=== PATIENT | male | born 1950 | race Caucasian/White ===

== ENCOUNTER 2021-07-17 11:18 | Outpatient (REF) | payer MEDICARE, SELFPAY ==
--- NOTE | ~2021-07-17 | XR_ITS ---
EXAMINATION: XR CHEST CLINICAL INFORMATION: BPH. COMPARISON: None TECHNIQUE: 2 views of the chest were obtained. FINDINGS: There is a probable nipple shadow overlying the left anterior fifth intercostal space. This may be confirmed with repeat view with nipple markers. The lungs otherwise clear and there is no airspace consolidation or groundglass opacity, pleural reaction, or effusion. The costophrenic sulci are clear. The heart is normal in size. The hilar and mediastinal contours are normal. Bony structures are unremarkable. XR/XR chest 2V IMPRESSION: 1. Probable nipple shadow overlying left anterior fifth intercostal space. This may be confirmed with repeat frontal view with nipple markers. 2. Lungs otherwise clear.
[2021-07-17 13:51] LABS: MANUAL DIFF FLAG NO
[2021-07-17 14:02] LABS: Basophils Absolute Auto 0.1 X10*3/uL (0.0-0.2); Basophils Percent Auto 0.9 % (0-2); Eosinophils Absolute Auto 0.2 X10*3/uL (0.0-0.4); Eosinophils Percent Auto 2.8 % (0-4); Hematocrit 49.9 % (42-52); Hemoglobin 16.8 g/dl (14.0-18.0); Imm Gran Abs Auto 0.01 X10*3/uL (0.00-0.03); Imm Gran Pct Auto 0.2 % (0.0-0.4); Lymphocytes Absolute Auto 1.7 X10*3/uL (1.2-4.9); Lymphocytes Percent Auto 29.7 % (20-40); Mean Corpuscular HGB Conc 33.7 g/dl (31.0-36.0); Mean Platelet Volume 9.8 fL (9.4-12.4); Monocytes Absolute Auto 0.5 X10*3/uL (0.1-1.2); Monocytes Percent Auto 9.2 % (2-11); Neutrophils Absolute Auto 3.2 X10*3/uL (2.0-8.3); Neutrophils Percent Auto 57.2 % (45-73); Platelet Count 225 X10*3/uL (160-400); Red Cell Distribution Width 12.2 % (11.0-16.0); White Blood Count 5.7 X10*3/uL (4.8-10.8)
[2021-07-17 14:03] LABS: Appearance Urine CLEAR; Color Urine YELLOW; Glucose Urine UA NEG (NEG); Leukocyte Esterase Urine NEG (NEG); Nitrite Urine NEG (NEG); Urine Blood NEG (NEG); Urine Ketones NEG (NEG); Urine Protein NEG (NEG-TRACE)
[2021-07-17 14:22] LABS: Alanine Aminotransferase 23 U/L (0-40); Albumin Level 4.2 g/dL (3.5-5.0); Alkaline Phosphatase 71 U/L (39-117); Anion Gap 13 (12-20); Aspartate Amino Transferase 24 U/L (5-37); Bilirubin Total 0.9 mg/dL (0.0-1.0); Blood Urea Nitrogen 18 mg/dL (9-16); Calcium 9.5 mg/dL (8.4-10.2); Carbon Dioxide 25 mmol/L (22-29); Chloride 108 mmol/L (96-108); Cholesterol 153 mg/dL; Estimated Glomerular Filt Rate > 60; Glucose Fasting 99 mg/dL (60-99); HDL Cholesterol 41 mg/dL; LDL Cholesterol Calculated 94 mg/dl; Potassium 4.9 mmol/L (3.3-5.1); Sodium 141 mmol/L (135-145); Total Protein 6.8 g/dL (6.5-8.0); Triglycerides 94 mg/dL
[2021-07-17 14:42] LABS: Prostate Specific Antigen Scr 3.61 ng/mL (<0.05-4.0)
== END 2021-07-17 11:19 | disposition home or self-care (01) ==
LOC: HO.10HDL 11:18
PROVIDERS: Visit Provider Internal Medicine
DX: R04.2 Hemoptysis (principal); K21.9 Gastro-esophageal reflux disease without esophagitis; N18.9 Chronic kidney disease, unspecified; N40.1 Benign prostatic hyperplasia with lower urinary tract symptoms; R35.1 Nocturia; Z12.5 Encounter for screening for malignant neoplasm of prostate
CPT/HCPCS: 36415; 71046; 80053; 80061; 81003; 84153; 85025

== ENCOUNTER 2023-05-17 14:31 | Outpatient (REF) | payer MEDICARE, SELFPAY ==
[2023-05-17 14:46] LABS: MANUAL DIFF FLAG NO
[2023-05-17 15:15] LABS: Basophils Percent Auto 0.6 % (0-2); Eosinophils Absolute Auto 0.2 X10*3/uL (0.0-0.4); Eosinophils Percent Auto 2.5 % (0-4); Hematocrit 50.1 % (42.0-52.0); Hemoglobin 16.7 g/dl (14.0-18.0); Imm Gran Abs Auto 0.04 X10*3/uL (0.00-0.03); Imm Gran Pct Auto 0.6 % (0.0-0.4); Lymphocytes Percent Auto 27.8 % (20-40); Mean Corpuscular HGB Conc 33.3 g/dl (31.0-36.0); Mean Corpuscular Hemoglobin 28.7 pg (27.0-33.0); Mean Corpuscular Volume 86.2 fL (80.0-98.0); Mean Platelet Volume 9.7 fL (9.4-12.4); Monocytes Absolute Auto 0.6 X10*3/uL (0.1-1.2); Monocytes Percent Auto 8.9 % (2-11); Neutrophils Absolute Auto 4.3 x10*3/uL (2.0-8.3); Neutrophils Percent Auto 59.6 % (45-73); Platelet Count 197 X10*3/uL (160-400); Red Blood Count 5.81 X10*6/uL (4.60-5.80); Red Cell Distribution Width 12.9 % (11.0-16.0); White Blood Count 7.2 X10*3/uL (4.8-10.8)
[2023-05-17 16:54] LABS: Alanine Aminotransferase 23 U/L (0-40); Albumin Level 4.3 g/dL (3.5-5.0); Alkaline Phosphatase 77 U/L (39-117); Anion Gap 15 (12-20); Aspartate Amino Transferase 30 U/L (5-37); Bilirubin Total 0.8 mg/dL (0.0-1.0); Blood Urea Nitrogen 19 mg/dL (9-16); Carbon Dioxide 24 mmol/L (22-29); Chloride 108 mmol/L (96-108); Cholesterol 167 mg/dL; Estimated Glomerular Filt Rate > 60; Glucose Fasting 87 mg/dL (60-99); HDL Cholesterol 46 mg/dL; LDL Cholesterol Calculated 99 mg/dl; Potassium 4.4 mmol/L (3.3-5.1); Sodium 143 mmol/L (135-145); Total Protein 7.1 g/dL (6.5-8.0); Triglycerides 111 mg/dL
[2023-05-17 17:08] LABS: Prostate Specific Antigen 4.24 ng/mL (<0.05-4.0)
== END 2023-05-17 14:32 | disposition home or self-care (01) ==
LOC: HO.LAB 14:31
PROVIDERS: PCP Internal Medicine; Visit Provider Internal Medicine
DX: K21.9 Gastro-esophageal reflux disease without esophagitis (principal); R35.1 Nocturia; Z86.73 Personal history of transient ischemic attack (TIA), and cerebral infarction without residual deficits; Z12.5 Encounter for screening for malignant neoplasm of prostate
CPT/HCPCS: 36415; 80053; 80061; 84153; 85025

== ENCOUNTER 2023-06-01 07:31 | Outpatient (REF) | payer MEDICARE, SELFPAY ==
--- NOTE | ~2023-06-01 | CT_ITS ---
EXAMINATION: CT head/brain wo IV con CLINICAL INFORMATION: Reason for Exam DISORDER OF FACIAL NERVE COMPARISON: None. TECHNIQUE: Contiguous axial imaging was performed from the skull base to vertex without intravenous contrast. Sagittal and coronal reformatted images were obtained. This CT examination was performed using dose optimization techniques as appropriate, variously including the following: * Automated exposure control * Adjustment of mA and/or kV according to patient size (this includes techniques or standardized protocols for targeted exams where dose is matched to indication/reason for exam; i.e. extremities or head) Use of iterative reconstruction technique DLP: 987 mGy-cm FINDINGS: Mild generalized parenchymal volume loss. Patchy periventricular and deep white matter hypoattenuation is nonspecific but likely reflects sequelae of moderate to advanced chronic microangiopathy. No territorial loss of weinberg-white differentiation. Limited assessment of the internal auditory canals and of the cranial nerve VII and VIII complexes on CT, which would be better diagnostically assessed on contrast-enhanced MRI IAC protocol. No largest cerebellopontine angle mass. Calcific atherosclerotic disease of the carotid siphons. No acute intracranial hemorrhage or extra-axial fluid collection. No mass lesion, significant mass effect, or herniation pattern. The orbits are grossly normal. Mild to moderate diffuse paranasal sinus mucosal disease with retention cyst/polyp in the left maxillary sinus alveolar recess. No mastoid effusion. Osseous structures are intact. CT/CT head/brain wo IV con IMPRESSION: No acute intracranial abnormality. Specifically, no CT evidence of acute intracranial hemorrhage, significant mass effect, hydrocephalus, or large territorial infarction. Mild generalized parenchymal volume loss and nonspecific supratentorial white matter disease, presumably moderate to advanced chronic microangiopathy. Limited assessment of the internal auditory canals and of the cranial nerve VII and VIII complexes on CT, which would be better diagnostically assessed on contrast-enhanced MRI IAC protocol. No largest cerebellopontine angle mass.
== END 2023-06-01 07:32 | disposition home or self-care (01) ==
LOC: HO.CT 07:31
PROVIDERS: Visit Provider Internal Medicine
DX: G51.9 Disorder of facial nerve, unspecified (principal)
CPT/HCPCS: 70450

== ENCOUNTER 2023-09-24 10:25 | Outpatient (REF) | payer MEDICARE, SELFPAY ==
[2023-09-24 14:19] LABS: Anion Gap 11 (12-20); Blood Urea Nitrogen 17 mg/dL (9-16); C Reactive Protein < 0.10 mg/dL (< or = 0.50); Calcium 9.6 mg/dL (8.4-10.2); Carbon Dioxide 26 mmol/L (22-29); Chloride 109 mmol/L (96-108); Estimated Glomerular Filt Rate > 60; Glucose Random 102 mg/dL (60-115); Magnesium 2.2 mg/dL (1.6-2.6); Potassium 4.2 mmol/L (3.3-5.1); Sodium 142 mmol/L (135-145)
[2023-09-24 15:12] LABS: Free T4 (Free Thyroxine) 0.79 ng/dL (0.71-1.85); Thyroid Stimulating Hormone 0.82 uIU/mL (0.32-4.0)
[2023-09-24 15:20] LABS: Vitamin B12 399 pg/mL (200-900)
== END 2023-09-24 10:26 | disposition home or self-care (01) ==
LOC: HO.10HDL 10:25
PROVIDERS: Visit Provider Internal Medicine
DX: R25.1 Tremor, unspecified (principal)
CPT/HCPCS: 36415; 80048; 82607; 83735; 84439; 84443; 86140

== ENCOUNTER 2023-11-04 13:15 | Outpatient (REF) | payer MEDICARE, SELFPAY ==
--- NOTE | ~2023-11-04 | US_ITS ---
EXAMINATION: US EXTRACRANIAL CAROTID DUPLEX, BILATERAL CLINICAL INFORMATION: Lightheadedness. COMPARISON: None available. TECHNIQUE: Real-time ultrasound and Doppler techniques (integrating B-mode 2-D vascular images, Doppler spectral analysis and color-flow Doppler imaging) were utilized to interrogate the extracranial carotid arteries, the vertebral arteries and proximal subclavian arteries bilaterally. The degree of stenosis is determined by criteria similar to NASCET. FINDINGS: Right Side: 1. There is no significant atherosclerotic plaque seen in the bifurcation/proximal ICA region. 2. The common carotid artery PSV proximally is 83 cm/s and distally 74 cm/s. 3. The proximal internal carotid artery velocities are 56 cm/s systolic and 19 cm/s diastolic. 4. The proximal external carotid artery PSV is 96 cm/s. 5. The vertebral artery shows antegrade flow. 6. The subclavian artery waveforms are normal. Left Side: 1. There is no significant atherosclerotic plaque seen in the bifurcation/proximal ICA region. 2. The common carotid artery PSV proximally is 96 cm/s and distally 74 cm/s. 3. The proximal internal carotid artery velocities are 44 cm/s systolic and 15 cm/s diastolic. 4. The proximal external carotid artery PSV is 90 cm/s. 5. The vertebral artery shows antegrade flow. 6. The subclavian artery waveforms are normal. US/US carotid duplex BI IMPRESSION: 1. RIGHT: Normal right internal carotid artery without atherosclerotic plaque or hemodynamically significant stenosis. 2. LEFT: Normal left internal carotid artery without atherosclerotic plaque or hemodynamically significant stenosis. 3. Antegrade flow seen via the bilateral vertebral arteries.
--- NOTE | 2023-11-04 13:45 | HM_ITS ---
* Total monitoring time 3 days. * Underlying rhythm is sinus with an average rate of 73/Min. Range 52 to 112/min. * Very rare supraventricular and ventricular ectopy. * No sustained arrhythmias. * No significant pauses or AV blocks. * Diary mentions weakness, but no patient markers or time specified. MTDD
== END 2023-11-04 13:16 | disposition home or self-care (01) ==
LOC: HO.US 13:15
PROVIDERS: PCP Internal Medicine; Visit Provider Internal Medicine
DX: R00.2 Palpitations (principal); R42 Dizziness and giddiness
CPT/HCPCS: 93242; 93880

== ENCOUNTER → 2023-11-04 13:45 | Outpatient (BNV) | payer MEDICARE, SELFPAY | PROVIDERS: PCP Internal Medicine; Visit Provider Internal Medicine | DX: R00.1 Bradycardia, unspecified (principal) | CPT/HCPCS: 93244 ==

== ENCOUNTER 2024-04-28 08:00 | Outpatient (REF) | payer MEDICARE, SELFPAY ==
[2024-04-28 08:12] LABS: MANUAL DIFF FLAG NO
[2024-04-28 09:04] LABS: Basophils Percent Auto 0.6 % (0-2); Eosinophils Absolute Auto 0.2 X10*3/uL (0.0-0.4); Eosinophils Percent Auto 3.5 % (0-4); Hematocrit 50.3 % (42.0-52.0); Hemoglobin 17.3 g/dl (14.0-18.0); Imm Gran Abs Auto 0.02 X10*3/uL (0.00-0.03); Imm Gran Pct Auto 0.3 % (0.0-0.4); Lymphocytes Percent Auto 31.6 % (20-40); Mean Corpuscular HGB Conc 34.4 g/dl (31.0-36.0); Mean Corpuscular Hemoglobin 29.8 pg (27.0-33.0); Mean Corpuscular Volume 86.6 fL (80.0-98.0); Mean Platelet Volume 9.9 fL (9.4-12.4); Monocytes Absolute Auto 0.7 X10*3/uL (0.1-1.2); Monocytes Percent Auto 10.6 % (2-11); Neutrophils Absolute Auto 3.3 x10*3/uL (2.0-8.3); Neutrophils Percent Auto 53.4 % (45-73); Platelet Count 211 X10*3/uL (160-400); Red Blood Count 5.81 X10*6/uL (4.60-5.80); Red Cell Distribution Width 12.6 % (11.0-16.0); White Blood Count 6.2 X10*3/uL (4.8-10.8)
[2024-04-28 09:26] LABS: Alanine Aminotransferase 22 U/L (0-40); Albumin Level 4.2 g/dL (3.5-5.0); Alkaline Phosphatase 71 U/L (39-117); Anion Gap 12 (12-20); Aspartate Amino Transferase 27 U/L (5-37); Bilirubin Total 0.9 mg/dL (0.0-1.0); Blood Urea Nitrogen 18 mg/dL (9-16); Calcium 9.7 mg/dL (8.4-10.2); Carbon Dioxide 27 mmol/L (22-29); Chloride 107 mmol/L (96-108); Cholesterol 163 mg/dL (<200); Estimated Glomerular Filt Rate > 60; Glucose Fasting 101 mg/dL (60-99); HDL Cholesterol 40 mg/dL (>40); LDL Cholesterol Calculated 100 mg/dL (<100); Potassium 4.3 mmol/L (3.3-5.1); Sodium 142 mmol/L (135-145); Total Protein 6.9 g/dL (6.5-8.0); Triglycerides 117 mg/dL (<150)
[2024-04-28 09:29] LABS: B Type Natriuretic Peptide 20 pg/mL (<100)
[2024-04-28 10:39] LABS: Prostate Specific Antigen 4.95 ng/mL (<0.05-4.0)
[2024-04-28 12:05] LABS: Appearance Urine Clear; Color Urine Yellow; Glucose Urine UA Negative (Negative); Leukocyte Esterase Urine Negative (Negative); Nitrite Urine Negative (Negative); PH 7.5 (5.0-9.0); Specific Gravity - Urine 1.015 (1.005-1.025); Urine Blood Negative (Negative); Urine Ketones Negative (Negative); Urine Protein Negative (Neg-Trace)
== END 2024-04-28 08:01 | disposition home or self-care (01) ==
LOC: HO.LAB 08:00
PROVIDERS: PCP Internal Medicine; Visit Provider Internal Medicine
DX: R60.9 Edema, unspecified (principal); K21.9 Gastro-esophageal reflux disease without esophagitis; I87.8 Other specified disorders of veins; Z12.5 Encounter for screening for malignant neoplasm of prostate; Z87.898 Personal history of other specified conditions
CPT/HCPCS: 36415; 80053; 80061; 81003; 83880; 84153; 85025

== ENCOUNTER 2024-05-15 07:30 | Day surgery (SDC) | payer MEDICARE, SELFPAY ==
--- NOTE | 2024-05-09 12:22 | HP_ITS ---
DATE OF SERVICE: 05/15/2024 HISTORY OF PRESENT ILLNESS: The patient is a 73-year-old male who is seen for preop evaluation for right cataract surgery scheduled with Dr. Oliveira next week. The patient feels well. His present medications are Prilosec 20 mg daily as needed for acid reflux and he is on doxycycline 100 mg twice a day for rosacea. ALLERGIES: HE HAS NO ALLERGIES TO MEDICINES. PAST MEDICAL HISTORY: Significant for kidney stones, chronic renal insufficiency, rosacea, peripheral edema, venous stasis disease, gastroesophageal reflux disease, BPH, hemorrhoids, neuropathy, gallstones, asthma, left hip fracture 3 years ago, T and A in the past. REVIEW OF SYSTEMS: Weight is up 5 pounds. No fevers, chills, or sweats. No headaches. Some peripheral edema. No palpitations or chest pains. No respiratory complaints. Occasional heartburn. No abdominal pain, urinary frequency, and nocturia. No joint complaints at this point. He has had a left hip replaced. No confusion or memory changes. Sleep and appetite are normal. He does report seasonal allergies. No skin complaints other than the rosacea. PHYSICAL EXAMINATION: GENERAL: He is awake and alert, in no distress.. VITAL SIGNS: Temperature is 97.7, pulse 70, respirations 12, pressure 130/80, oxygen 97% on room air. Weight is 249, height is 6 feet 3 inches. HEENT: There was wax in the ear canals. Pupils are equal and reactive. HEART: Sounds S1, S2. LUNGS: Clear. Little distant. ABDOMEN: Soft, nontender. Positive bowel sounds. EXTREMITIES: Positive edema, 1+ pulses. Venous stasis changes. He does not smoke. No bruising noted. NEUROLOGIC: Appropriate affect. Alert and oriented x3. ASSESSMENT: 1. Preop cataract surgery, right eye. He is medically stable for the proposed procedure. 2. Venous stasis disease, unchanged. 3. Peripheral edema, elevate legs. 4. Gastroesophageal reflux disease, on p.r.n. Prilosec. 5. History of kidney stones, stable at this time. 6. Chronic renal insufficiency, follow labs. 7. Rosacea. PLAN: On antibiotics. I will be available if there are any questions about medical management. Trell Ramos MD FC/MODL / [phone]
[2024-05-10 10:37] VITALS: BMI 29.9
[2024-05-10 10:53] VITALS: BMI 31.1
--- NOTE | 2024-05-11 13:27 | HO.ANESPROP2 ---
Documented by User: Ju Ambrose NP 05/11/24 13:28 HPI - Anesthesia Eval Consult details Narrative: 73yo M for Right Cataract Extraction IOL Insertion No previous cataract PMFSH Past Medical History Medical History Environmental allergies Arthritis Asthma Hemorrhoids Neuropathy BPH (benign prostatic hyperplasia) GERD (gastroesophageal reflux disease) Venous stasis Renal calculi Chronic renal insufficiency Rosacea Surgical History Surgical History History of hip surgery H/O colonoscopy History of total left hip arthroplasty Hx of tonsillectomy Social History Social History Are you a primary medicare insurance specialist to a significant other at home: No Do you presently have visiting nurse or other home services: No Patient Tobacco Use Status: Never used Tobacco Use of substances other than those prescribed or required for medical reasons: No Have you been hit, kicked, punched, or otherwise hurt by someone within the past year? If so, by whom?: No Are you DNR?: No Advance Directives: No (S.O. is primary contact) Advance Directives Information Provided: Yes (as above noted) Advance Directives on File: No Recently lost weight without trying: No Eating poorly because of decreased appetite: No Nutrition Risks: No Nutritional Risk Poor oral hygiene: No (one missing crown) Meds Allergies Allergy/AdvReac Type Severity Reaction Status Date / Time No Known Allergies Allergy Verified 05/15/24 09:23 Home Medications ?Medication ?Instructions ?Recorded ?Confirmed ?Last Taken ?Type doxycycline hyclate 100 mg capsule 100 mg PO BID 05/10/24 05/10/24 Unknown History ibuprofen 200 mg tablet (Advil) 400 mg PO Q6H PRN Pain 05/10/24 05/10/24 Unknown History omeprazole magnesium 20 mg 20 mg PO DAILY PRN Acid Reflux 05/10/24 05/10/24 Unknown History tablet,delayed release (Prilosec OTC) sildenafil 50 mg tablet 50 mg PO Q3D PRN Erectile 05/10/24 05/10/24 Unknown History Dysfunction Exam Height,Weight and Vital Signs: Height 6 ft 3 in Weight 112.945 kg Assessment and Plan Assessment Anesthesia Assessment: Chart Reviewed Documented by User: Lili Farris MD 05/15/24 09:40 PMFSH Past Medical History Medical History Environmental allergies Arthritis Asthma Hemorrhoids Neuropathy BPH (benign prostatic hyperplasia) GERD (gastroesophageal reflux disease) Venous stasis Renal calculi Chronic renal insufficiency Rosacea Family History Family history of problems with anesthesia: No Surgical History Surgical History History of hip surgery H/O colonoscopy History of total left hip arthroplasty Hx of tonsillectomy History of Problems with Anesthesia: No Social History Social History Are you a primary medicare insurance specialist to a significant other at home: No Do you presently have visiting nurse or other home services: No Patient Tobacco Use Status: Never used Tobacco Use of substances other than those prescribed or required for medical reasons: No Have you been hit, kicked, punched, or otherwise hurt by someone within the past year? If so, by whom?: No Are you DNR?: No Advance Directives: No (S.O. is primary contact) Advance Directives Information Provided: Yes (as above noted) Advance Directives on File: No Recently lost weight without trying: No Eating poorly because of decreased appetite: No Nutrition Risks: No Nutritional Risk Poor oral hygiene: No (one missing crown) Meds Allergies Allergy/AdvReac Type Severity Reaction Status Date / Time No Known Allergies Allergy Verified 05/15/24 09:23 Home Medications ?Medication ?Instructions ?Recorded ?Confirmed ?Last Taken ?Type doxycycline hyclate 100 mg capsule 100 mg PO BID 05/10/24 05/10/24 Unknown History ibuprofen 200 mg tablet (Advil) 400 mg PO Q6H PRN Pain 05/10/24 05/10/24 Unknown History omeprazole magnesium 20 mg 20 mg PO DAILY PRN Acid Reflux 05/10/24 05/10/24 Unknown History tablet,delayed release (Prilosec OTC) sildenafil 50 mg tablet 50 mg PO Q3D PRN Erectile 05/10/24 05/10/24 Unknown History Dysfunction Exam Airway Mallampati Class: III TM Dist: >3cm Neck ROM: Limited Heart: rrr Lungs: cta Assessment and Plan Assessment Anesthesia Assessment: Anesthesia Plan Discussed Final Anesthetic Review Family History of Problems with Anesthesia: No History of Problems with Anesthesia: No NPO: Yes ASA Class: II Final Preanesthetic Review: No Changes in Pt Med Stat, Meds/Allgs Chart Reviewed, Consent Obtained/Reviewed and Anes Risks/Benef Reviewed Patient Risk: Intermediate Procedure Risk: Low Anesthetic Plan Anesthetic Plan: MAC: Disposition: Standard PACU
[2024-05-15 08:49] VITALS: BP 158/85; PULSE 64; RESP 18; TEMP 36.3; O2SAT 99
[2024-05-15 08:53] VITALS: BMI 29.2
[2024-05-15] MEDS: Tropicamide 1 % Ophth Sol 3 ML BTL 1 DROP EYE-RIGHT ×3 (09:14→09:20)
[2024-05-15] MEDS: Tetracaine HCl/PF 0.5% Oph Sol 4 ML DROPS 1 DROP EYE-RIGHT (09:14)
[2024-05-15] MEDS: Lactated Ringers 500 ML 50 ML IV (09:14)
[2024-05-15] MEDS: Phenylephrine HCL 2.5% Oph SoL 2 ML BOTTLE 1 DROP EYE-RIGHT ×3 (09:15→09:20)
[2024-05-15] MEDS: Ketorolac Tromethamine 0.5% Op 10 ML DROPS 1 DROP EYE-RIGHT ×3 (09:15→09:20)
[2024-05-15] MEDS: Cyclopentolate 1 % Ophth Sol 2 ML DRPBTL 1 DROP EYE-RIGHT ×3 (09:15→09:20)
--- NOTE | 2024-05-15 09:55 | P.PCNO_ITS ---
Ophthalmology Procedure Procedure Date of Service: 05/15/24 Ophthalmology Viscoelastic: Healon Duet Dual Pack Pro Ophthalmology Lenses: IOL Acrysof MP - [id number] (19) Procedure Notes: PREOPERATIVE DIAGNOSIS: Decreased visual acuity right eye secondary to cataract POSTOPERATIVE DIAGNOSIS: Same PROCEDURE: Right cataract extraction with intraocular lens insertion SURGEON: Cj Oliveira M.D. ANESTHESIA: Topical/MAC ESTIMATED BLOOD LOSS: None COMPLICATIONS: None After obtaining informed consent, the patient was brought to the operating room suite and placed in the supine position. After adequate sedation per anesthesia, topical drops of Tetracaine were given to the right eye. The eye was then prepped and draped in the usual sterile fashion. The operating room microscope was then positioned over the operative eye and a lid speculum placed. A paracentesis was created. Viscoelastic was then instilled into the anterior chamber. A three plane incision was then created temporally, utilizing a 2.85 mm keratome. Capsulotomy forceps were then utilized to create a circular tear capsulotomy. Hydrodissection and hydrodelineation were carried out until adequate mobilization of the nucleus occurred. Phacoemulsification was then utilized to remove the dense central nucl eus followed by removal of the cortical material utilizing the automated aspiration irrigation unit. Viscoelastic was instilled into the posterior capsular bag followed by placement of a posterior chamber intraocular lens without difficulty. The residual Viscoelastic was then removed utilizing the automated IA machine. The wound was checked and found to be watertight. The patient tolerated the procedure well and the lid speculum was removed. Intracameral injection of Vigamox 0.1 mL followed by a subtenon injection of Kenalog-40 0.2 mL were administered. The patient will be seen in the a.m.
--- NOTE | 2024-05-15 09:55 | MHC.SHP ---
Pre-Procedural Eval Section A - 24 Hr Update-Section A only Date of Service: 05/15/24 The patient has been examined within 24 hours of the surgical procedure. The History & Physical has been completed within 30 days and I have reviewed it.: Yes Section B - Complete if H&P > 30 days Chief Complaint: Age-related nuclear cataract, right eye Allergies: Allergies Allergy/AdvReac Type Severity Reaction Status Date / Time No Known Allergies Allergy Verified 05/15/24 09:23 Plan Diagnosis/Plan: Unchanged I have reviewed the history and physical and performed a pertinent physical examination on my patient. No changes have occurred unless specified. Time Spent With Patient Time: Total time managing care of this patient today ____ minutes.
[2024-05-15 10:21] VITALS: BP 141/87; PULSE 63; RESP 16; TEMP 36.3; O2SAT 97
== END 2024-05-15 10:34 | disposition home or self-care (01) ==
PROVIDERS: PCP Internal Medicine; Visit Provider Ophthalmology
PROC: (CPT 66985; principal; 2024-05-15 10:10)
DX: H25.11 Age-related nuclear cataract, right eye (principal); H54.7 Unspecified visual loss; H53.001 Unspecified amblyopia, right eye; D31.31 Benign neoplasm of right choroid; H04.123 Dry eye syndrome of bilateral lacrimal glands; N18.9 Chronic kidney disease, unspecified; G62.9 Polyneuropathy, unspecified; J45.909 Unspecified asthma, uncomplicated; Z79.1 Long term (current) use of non-steroidal anti-inflammatories (NSAID); Z79.899 Other long term (current) drug therapy; Z98.890 Other specified postprocedural states
CPT/HCPCS: 66984; J2250; J3010; J3301; V2630

== ENCOUNTER 2024-10-27 07:16 | Outpatient (REF) | payer MEDICARE, SELFPAY ==
--- NOTE | ~2024-10-27 | XR_ITS ---
CLINICAL HISTORY: ASSESS CARDIAC SIZE 2 view chest x-ray Comparison: 07/17/2021 Findings: No consolidation or effusion. Heart size is normal. No acute fracture. IMPRESSION: 1. No acute findings. This document has been electronically signed by: Bennett Haines MD on 10/27/2024 08:02:28
--- OUTSIDE RECORDS SUMMARY | 2024-10-27 07:21 | XMS_ITS | Patient Health Record ---
Author Organization [facility] Address [address] [place] [address] Care Team Providers Care Health Insurance Assessor Name Role Phone Harvey Ramos MD Primary Care Provider Francesco Woodall Unavailable [phone] ALLERGIES No Known Allergies REASON FOR REFERRAL No Information MEDICATIONS Medication SIG (Take, Route, Frequency, Duration) Notes Start Date End Date Status Sildenafil Citrate 50 MG TAKE 1 TABLET(S ) BY MOUTH EVERY 72 HOURS NEEDED Oral for 30 Active Doxycycline Hyclate 100 MG Oral for 30 Active Ketoconazole 2 % APPLY TWICE DAILY TO RASH IN THE GROIN NEEDED. External for 30 Active Advil 200 MG 1 tablet with food o r milk as needed Orally Three times a day prn Not-Taking Omeprazole 20 MG 1 capsule 1/2 to 1 hour before morning meal Orally Once a day for 30 day(s) otc/prn Active SOCIAL HISTORY Tobacco Use: Social History Observation Description Date Details (start date - stop date) Never Smoker NA - NA Sex Assigned At : Social History Observation Description Sex Assigned At Unknown Tobacco Use/Smoking Question Answer Notes Patient is a nonsmoker Alcohol Screen Question Answer Notes Did you have a drink containing alcohol in the p ast year? No Points 0 Interpretation Negative PROBLEMS Problem Type ICD Code Onset Dates Problem Status W/U Status Risk SNOMED Code Notes Problem Encounter for screening for malignant neoplasm of colon (Z12.11) Active confirmed Screening for malignant neoplasm of colon (934387653) Problem Encounter for other preprocedural examination (Z01.818) Active confirmed Pre-procedure evaluation check (738845428) VITAL SIGNS Blood pressure diastolic 00 mm Hg 07/28/2024 Height 6 ft 4 in in 07/28/2024 Blood pressure systolic 00 mm Hg 07/28/2024 Weight 252 lbs 07/28/2024 BMI 30.67 kg/m2 07/28/2024 Encounters Encounter Location Date Provider Diagnosis [facility] [address] [place] [address] 07/28/2024 Francesco Caceres Encounter for screen ing for malignant neoplasm of colon Z12.11 and Encounter for other preprocedural examination Z01.818 ASSESSMENTS Encounter Date Diagnosis Assessment Notes Treatment Notes Treatment Clinical Notes 07/28/2024 Encounter for screening for malignant neoplasm of colon (ICD-10 - Z12.11) 07/28/2024 Encounter for other preprocedural examination (ICD-10 - Z01.818) PLAN OF TREATMENT Future Test Test Name Order Date COLONOSCOPY 07/28/2024 Next Appt Details Provider Name:Francesco Caceres , 11/13/2024 12:30:00 PM, [address] [facility] , [place], [place], [id number], Insurance Providers Payer Name Payer Address Payer Phone Subscriber Number Group Number Insured Name Patient Relationship to Insured Coverage Start Date Coverage End Date MEDICARE OF [place] [address] JONATHAN LARIOSBAOAISHWARYA [phone] [id number] MARTHA PALAFOX Self - patient is the insured [facility] [employer]AL [employer]AN [address] [place], [place] [address] [id number] MARTHA PALAFOX Self - patient is the insured MEDICAL (GENERAL) HISTORY Medical History History ICD Code Kidney stones Denies CO,DM,CVA,Lung disease,renal dise ase Acne rosacea 2 or 3 negative colonoscopies while [place] in [place]---last one before 2009 Told of Gallstones in the past-asymptoma tic Elevated PSA with urinary frequency--I t old him to see a Urologist Surgical History Surgery Date(Month/Year) Left hip replacement 2022, left hip frac ture before that Hemorrhoid banding
[2024-10-27 07:33] LABS: MANUAL DIFF FLAG NO
[2024-10-27 08:36] LABS: Basophils Absolute Auto 0.1 X10*3/uL (0.0-0.2); Basophils Percent Auto 1.1 % (0-2); Eosinophils Absolute Auto 0.3 X10*3/uL (0.0-0.4); Hematocrit 50.9 % (42.0-52.0); Imm Gran Abs Auto 0.07 X10*3/uL (0.00-0.03); Imm Gran Pct Auto 1.1 % (0.0-0.4); Lymphocytes Absolute Auto 1.9 X10*3/uL (1.2-4.9); Mean Corpuscular HGB Conc 33.4 g/dl (31.0-36.0); Mean Corpuscular Hemoglobin 29.1 pg (27.0-33.0); Mean Platelet Volume 9.5 fL (9.4-12.4); Monocytes Absolute Auto 0.6 X10*3/uL (0.1-1.2); Monocytes Percent Auto 9.9 % (2-11); Neutrophils Absolute Auto 3.5 x10*3/uL (2.0-8.3); Neutrophils Percent Auto 53.9 % (45-73); Platelet Count 221 X10*3/uL (160-400); Red Blood Count 5.85 X10*6/uL (4.60-5.80); Red Cell Distribution Width 12.5 % (11.0-16.0); White Blood Count 6.4 X10*3/uL (4.8-10.8)
[2024-10-27 08:40] LABS: Estimated Average Glucose 105 mg/dL; Hemoglobin A1C 150.0125 umol/L; Hemoglobin A1c % 5.3 % (<6.0); Total Hemoglobin (HGBA1C) 4373.8713 umol/L
[2024-10-27 08:48] LABS: Appearance Urine Clear; Color Urine Yellow; Glucose Urine UA Negative (Negative); Leukocyte Esterase Urine Negative (Negative); Nitrite Urine Negative (Negative); PH 5.5 (5.0-9.0); Urine Blood Negative (Negative); Urine Ketones Negative (Negative); Urine Protein Negative (Neg-Trace)
[2024-10-27 09:22] LABS: Prostate Specific Antigen 4.31 ng/mL (<0.05-4.0)
[2024-10-27 09:45] LABS: Alanine Aminotransferase 26 U/L (0-40); Albumin Level 4.1 g/dL (3.5-5.0); Alkaline Phosphatase 70 U/L (39-117); Anion Gap 9 (12-20); Aspartate Amino Transferase 29 U/L (5-37); Bilirubin Total 0.9 mg/dL (0.0-1.0); Blood Urea Nitrogen 20 mg/dL (9-16); Calcium 9.5 mg/dL (8.4-10.2); Carbon Dioxide 27 mmol/L (22-29); Chloride 111 mmol/L (96-108); Cholesterol 147 mg/dL (<200); Estimated Glomerular Filt Rate 59; Glucose Fasting 97 mg/dL (60-99); HDL Cholesterol 35 mg/dL (>40); LDL Cholesterol Calculated 85 mg/dL (<100); Potassium 4.3 mmol/L (3.3-5.1); Sodium 143 mmol/L (135-145); Thyroid Stimulating Hormone 1.03 uIU/mL (0.32-4.0); Total Protein 6.8 g/dL (6.5-8.0); Triglycerides 137 mg/dL (<150)
== END 2024-10-27 07:17 | disposition home or self-care (01) ==
LOC: HO.XRAY 07:16
PROVIDERS: PCP Internal Medicine; Visit Provider Internal Medicine
DX: R60.9 Edema, unspecified (principal); I87.8 Other specified disorders of veins; R63.5 Abnormal weight gain; K21.9 Gastro-esophageal reflux disease without esophagitis; Z12.5 Encounter for screening for malignant neoplasm of prostate; Z13.1 Encounter for screening for diabetes mellitus
CPT/HCPCS: 36415; 71046; 80053; 80061; 81003; 83036; 84153; 84439; 84443; 85025

== ENCOUNTER → 2024-10-27 07:39 | Outpatient (BNV) | payer MEDICARE, OTHER, SELFPAY | PROVIDERS: PCP Internal Medicine; Visit Provider Specialist | DX: R60.9 Edema, unspecified (principal) | CPT/HCPCS: 71046 ==

== ENCOUNTER → 2024-11-03 10:36 | Outpatient (REF) | payer MEDICARE, SELFPAY ==
--- NOTE | 2024-11-03 10:38 | CA_ITS ---
Transthoracic Echocardiogram Patient (Last, First, Middle): Bert Zhou, Gender: Male Date of : 1950 Age: 74 Procedure Date: 11/03/2024 Procedure Type: Transthoracic Echocardiogram Location: OP Height: 193.04 cm Weight: 113.4 kg BSA: 2.44 m2 Heart Rate: 71 bpm BP: 152 / 90 mmHg Cloth Tearer: SB Referring MD: Harvey Ramos MD Symptoms: R60.9 EDEMA Study Quality: Adequate ECG Rhythm: Sinus Conclusions: - Normal left ventricular size, thickness, systolic function, and wall motion. The visually estimated ejection fraction is between 55-60%. - E/E prime ratio is between 8 and 15 consistent with indeterminate filling pressures. - Normal right ventricular cavity size and systolic function. - There is mild dilatation of the ascending aorta measuring 3.90 cm and mild dilatation of the aortic arch measuring 3.90 cm. Findings Left Ventricle Normal left ventricular size, thickness, systolic function, and wall motion. The visually estimated ejection fraction is between 55-60%. Abnormal diastolic function is noted. Spectral Doppler is indicative of a pseudonormal filling pattern. E/E prime ratio is between 8 and 15 consistent with indeterminate filling pressures. Right Ventricle Normal right ventricular cavity size and systolic function. Atria The left atrium is normal in size. The right atrium is normal in size. Aortic Valve There is a normal trileaflet aortic valve. There is no aortic valve stenosis. There is no aortic valve regurgitation. Mitral Valve The mitral valve appears normal. There is trace mitral valve regurgitation. There is no mitral valve stenosis. Pulmonic Valve The pulmonic valve is likely normal. Tricuspid Valve Normal tricuspid valve structure. There is no tricuspid valve regurgitation. Tricuspid regurgitation envelope is inadequate for calculation of right ventricular systolic pressure. Normal right atrial pressure. Great Vessels There is mild dilatation of the ascending aorta measuring 3.90 cm and mild dilatation of the aortic arch measuring 3.90 cm. The visualized portions of the pulmonary artery and branches are normal. Venous The inferior vena cava is normal in size and collapses greater than 50% with inspiration. Pericardium/Pleural There is no evidence of pericardial effusion. Prior Study Comparison No prior study available for comparison. Measurements 2D Linear Measurements IVSd: 1.12 0.6-0.9/0.6-1.0 cm LVIDd: 6.09 3.9-5.3/4.2-5.9 cm LVIDd Index: 2.50 2.4-3.2/2.2-3.1 cm/m2 LVIDs: 4.20 2.0-3.6 cm LVPWd: 0.88 0.7-1.1 cm LA Diam: 3.80 2.7-3.8/3.0-4.0 cm LAIDs Index: 1.56 1.5-2.3 cm/m2 LV Mass: 316.57 67-162/88-224 g LV Mass Index: 129.74 43-95/49-115 g/m2 LVOT Diam: 2.50 3.0+(-)1.3 cm 2D Systolic Function EF 4C: 57.10 >55% EF 2C: 53.00 >55% EF BiP: 53.90 >55% Mitral Valve MV Pk E: 0.84 MV PK A: 0.73 MV Decel Time: 175.00 E/A: 1.10 E'Lateral: 8.05 E'Medial: 4.90 E/E' Med: 17.10 E/E' Lat: 10.40 PHT: 51.00 MVA PHT: 4.31 Decel Banks: 4.77 Aortic Valve AoV Pk Edu: 0.99 AoV Pk Grad: 4.00 NIDA: 4.91 LVOT LVOT Pk Edu: 0.99 LVOT Mn Edu: 0.74 LVOT VTI: 0.20 LVOT Pk Grad: 4.00 LVOT Mn Grad: 2.00 LVOT Diam: 2.50 LVOT Area: 4.91 Diastolic Function MV Pk E: 0.84 MV Pk A: 0.73 E/A: 1.10 E'Medial: 4.90 E/E' Med: 17.10 E' Laterial: 8.05 E/E' Lat: 10.40 Right Ventricle TAPSE (mm): 21.90 TVS' Deu: 12.40 Tricuspid Valve RA Press: 3.00 Great Vessels Aorta Sinus of Valsalva: 3.40 2.0-3.5 cm Ao Asc: 3.90 2.1-3.4 cm Ao Arch: 3.90 Pulmonary Veins Pulm Vein S/D 1.10 Pulmonary Valve PV Pk Edu: 0.96 Peak PV Grad: 4.00 Updated in Other Vendor System with Status of Final Jose L Bustamante MD electronically signed on 11/04/2024 1:45:25 PM with status of Final
== END ==
LOC: HO.CARD 10:36
PROVIDERS: PCP Internal Medicine; Visit Provider Internal Medicine
DX: R60.9 Edema, unspecified (principal)
CPT/HCPCS: 93306

== ENCOUNTER → 2024-11-03 10:38 | Outpatient (BNV) | payer MEDICARE, SELFPAY | PROVIDERS: PCP Internal Medicine; Visit Provider Internal Medicine Cardiovascular Disease | DX: I51.89 Other ill-defined heart diseases (principal); I77.810 Thoracic aortic ectasia | CPT/HCPCS: 93306 ==

== ENCOUNTER 2025-02-16 10:14 | Day surgery (SDC) | payer MEDICARE, SELFPAY ==
[2025-02-14 11:41] VITALS: BMI 30.7
--- OUTSIDE RECORDS SUMMARY | 2025-02-15 12:39 | XMS_ITS | Data Portability ---
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 Plan of Treatment Reminders Order Date Submit Date Provider Last Modified By Organization Details Last Modified Time Details Appointments None recorded. Lab hepatitis C virus Ab, serum 2017 018 [facility] ([place] [facility]), [address], [address], 9 10:29:04 PSA, serum or plasma 2017 018 [facility] ([place] [facility]), [address], [address], 9 10:29:04 lipid panel, blood 2017 018 [facility] ([place] [facility]), [address], [address], 8 10:06:17 CBC w/ diff 2017 018 [facility] ([place] [facility]), [address], [place], [address], 8 10:06:16 vitamin B12, serum 2017 018 [facility] ([place] [facility]), [address], [place], [address], 8 10:06:17 BMP, serum or plasma 2017 018 dcruse [facility] ([place] [facility]), [address], [place], [address], 8 10:06:17 magnesium, serum or plasma 2017 018 dcruse [facility] ([place] [facility]), [address], [place], [address], 8 10:06:17 HbA1c (hemoglobi n A1c), blood 2017 018 [facility] ([place] [facility]), [address], [place], [address], 8 19:06:45 glucose, QN [mass/volu me], serum or plasma 2017 018 cjose [facility] ([place] [facility]), [address], [place], [address], 8 08:24:37 uric acid, serum or plasma 2016 017 [facility] ([place] [facility]), [address], [place], [address], 8 14:22:42 ALT (alanine aminotrans ferase), serum or plasma 2016 017 [facility] ([place] [facility]), [address], [place], [address], 8 14:22:43 lipid panel, serum - Fasting for 12 hours. Water and medication s ONLY. 2016 017 [facility] ([place] [facility]), [address], [place], [address], 8 14:22:44 HbA1c (hemoglobi n A1c), blood 2016 017 [facility] ([place] [facility]), [address], [place], [address], 8 16:19:52 glucose, fasting, QN, serum or plasma 2016 017 [facility] ([place] [facility]), [address], [place], [address], 8 09:32:40 HbA1c (hemoglobi n A1c), blood 2015 016 [facility] ([place] [facility]), [address], [place], [address], 7 17:44:40 glucose, fasting, QN, serum or plasma 2015 016 [facility] ([place] [facility]), [address], [place], [address], 7 09:14:51 ALT (alanine aminotrans ferase), serum or plasma 2015 016 [facility] ([place] [facility]), [address], [place], [address], 7 14:46:49 lipid panel, serum - Fasting for 12 hours. Water and medication s ONLY. 2015 016 [facility] ([place] [facility]), [address], [place], [address], 7 14:46:50 Referral neurologis t referral - paresthesi as and mild hypesthesi a of his toes bilaterall y 2017 018 [facility], [address] [place], [address], 8 07:06:34 Procedures None recorded. Surgeries None recorded. Imaging None recorded. Medication Orders omeprazole 20 mg capsule,de layed release 2017 018 [facility], [address] [place], [address], 8 11:29:47 ProAir HFA 90 mcg/actuat ion aerosol inhaler 2017 018 [facility], [address] [place], [address], 8 11:29:47 omeprazole 20 mg capsule,de layed release 2016 017 [facility], [address] [place] [address], [address], 7 11:40:08 omeprazole 20 mg capsule,de layed release 2016 017 [facility], [address] [place] [address], [address], 7 09:16:34 Patient TargetsNo targets recorded. Patient Instructions Encounter Date Encounter Id Patient Instructions Last Modified By Organization Details Last Modified Time 09/04/2016 [id number] advised to lose weight ngr[place] Not available 09/04/2016 19:52:48 03/04/2017 [id number] advised to lose weight [place] Not available 03/04/2017 09:16:33 We discussed the above issues for >30 mins. ngrumbach Not available 03/04/2017 09:17:21 09/02/2017 [id number] advised to lose weight [place] Not available 09/02/2017 11:40:06 We discussed the above issues for >1/2 of the 45 min visit. ngrumbach Not available 09/02/2017 13:00:50 02/07/2018 [id number] advised to lose weight ngr[place]ach Not available 02/07/2018 11:11:29 We discussed the above issues for >1/2 of the 30 min appt. ricci Not available 02/08/2018 10:38:35 09/05/2018 [id number] SM: HEALTHY BEHA VIORS COUNSELLING ard Not available 09/05/2018 11:29:45 A healthy lifest yle: care instructions ard Not available 09/05/2018 11:29:44 exercise [email or web address] Not available 2017 11:35:16 Yours Major risk factors: reflux family history of dementia Recommendations for Improvement: exercise and eat better! Preventative Screening Plan: 1) Body Mass Index (BMI), Height, Weight: Due Annually: See goals section above for specific goal set by your provider, based on your risk factors. 2) Blood Pressure Measurement: Due Annually if BP > 120-139/80-89 mm hg, else Due every 2 years: See goals section above for specific goal set by your provider, based on your risk factors. 3) Vision Screening: Due every 3 years up to age 40; every 2 years aged 40+, Every 1 year if diabetic. Up to date 4)Abdominal Aortic Aneurysm: Once, between the age range of 65-75, if smoked 100+ cigarettes in lifetime. *Note: Only covered by Medicare B if ordered during 1st Welcome to Medicare visit. Not Applicable 5)Cholesterol Testing: frequency depends on risk factors. 0 risk factors= Screen every 5 years. Screen more often and begin at a younger age for those who are overweight and if risk factors are present. Up to date Next due: Ordered today 6)Diabetes Screening: frequency depends on risk factors. Screen every 3 years beginning at age 45. Screen more often and begin at a younger age for those who are overweight and if risk factors are present. Up to date Next due: Ordered today 7)Colorectal Cancer Screening:Colonoscopy at age 50 and then at least every 10 years (Frequency depends on risk factors) OR Annual fecal occult blood test (FOBT) +/- sigmoidoscopy every 5 years. We will find out when you are due again. 8) Sexually Transmitted Diseases (STD's). As necessary for those with risk factors: Not Applicable 9) Depression Screening: As necessary for those with risk factors: Up to date 10) Alcohol Misuse Screening: As necessary for those with risk factors: Up to date 11) Hepatitis C test one time during adulthood if you were born [birth year]36-5301.Up to date Next due: Ordered today 12)Immunizations: Influenza (Flu) vaccine: Annually. Up to date Next due: Ordered today PREVNAR 13 (Pneumococcal 13-valent Conjugate Vaccine): All adults 65 years of age or older who have not previously received PCV13 (1 year separate from Pneumovax 23). Adults 19 years of age or older with certain high risk medical conditions. Not Applicable PNEUMOVAX 23 (Pneumococcal polysaccharide vaccine (PPSV)): . Recommended for use in all adults 65 years of age or older (1 year separate from Ftrqffg40). PPSV23 is also recommended as a one time dose for use in adults 19 through 64 years of age who smoke cigarettes or who have asthma. Most frequent for persons high risk for pneumococcal disease (e.g., those with sickle cell disease, HIV infection, or other immunocompromising conditions). Not Applicable Adult Tetanus, Diphtheria, Pertussis (Td, Tdap) Vaccine: All adults > age 19 and older. Due every 10 years. Shingrix (recombinant zoster vaccine - RZV) -> CDC recommends two doses by 2 to 6 months for immunocompetent adults age 50 years and older. 13) Follow-up Appointments and Monitoring for Patients on Persistent Medications: Due at least annually, more frequent depending on risk factors. May include review of relevant blood work and/or a medication review with a pharmacist. Up to date Depending on your health and personal risk factors, your preventive care schedule may differ from the standard recommendations. Talk with your doctor about a schedule that's best for you. [email or web address] Not available 09/05/2018 11:35:16 Reason for Referral Neurologist Referral for Par esthesia of foot paresthesias and mild hypesthesia of his toes bilaterally Referring Physician: Morgan Barton, Internal Medicine, Encounter Date: 02/07/2018 Results Created Date Observation Date Name Description Value Unit Range Abnormal Flag Note LastModifiedBy Organization Detail LastModifiedTime 08/17/20 16 08/17/2016 PSA, body fluid PSA 3.619 Not Available [facility] ([facility]) [address] [place], [address], 08/18/2016 09:26:03 08/28/20 16 08/28/2016 gluco se, fasti ng, QN, serum or plasm a glucose 102 mg/dL 67-99 high Not Available [facility] ([place] [facility]) [address], [address], 08/28/2016 11:25:59 08/28/20 16 08/28/2016 lipid panel , serum cholesterol level 171 mg/dL 110-19 9 Adult Nurys stero l Inter preta tion: Valentin able: <200 Borde rline :200- 239 High >239 Not Available [facility] ([place] [facility]) [address], [address], 08/28/2016 11:25:59 08/28/20 16 08/28/2016 lipid panel , serum triglyceride s 106 mg/dL 40-150 Adult Trigl yceri de Inter preta tion: Valentin able <150 Borde rline 150-1 99 High >199 Not Available [facility] ([place] [facility]) [address], [address], 08/28/2016 11:25:59 08/28/20 16 08/28/2016 lipid panel , serum HDL 43 mg/dL 40-70 HDL Inter preta tion: Low Less than 40 Valentin able great er than 40 Not Available [facility] ([place] [facility]) [address], [address], 08/28/2016 11:25:59 08/28/20 16 08/28/2016 lipid panel , serum LDL 107 mg/dL 70-129 Adult LDL Inter preta tion: Valentin able <130 Borde rline 130-1 59 High >159 An Accur ate calcu lated LDL is obtai dexter when the patie nt is fasti ng 12 hours . Not Available [facility] ([place] [facility]) [address], [address], 08/28/2016 11:25:59 08/28/20 16 08/28/2016 lipid panel , serum chol HDL ratio 4.0 2.0-5. 0 Not Available [facility] ([place] [facility]) [address] [facility] [address], [place], [address], 08/28/2016 11:25:59 08/28/20 16 08/28/2016 lipid panel , serum hours fasting 12 hours Not Available [facility] ([place] [facility]) [address] [facility] [address], [place], [address], 08/28/2016 11:25:59 08/28/20 16 08/28/2016 ALT (rosalba ine amino trans feras e), serum or plasm a ALT 28 IU/L 6-45 Not Available [facility] ([place] [facility]) [address] [facility] [address], [place], [address], 08/28/2016 11:26:00 08/28/20 16 08/28/2016 HbA1c (hemo globi n A1c), blood A1C 5.1 % 4.3-5. 8 Not Available [facility] ([place] [facility]) [address] [facility] [address], [place], [address], 08/28/2016 17:47:10 01/09/20 17 01/08/2017 urina lysis , dipst ick color urine YELLOW yellow Not Available [facility] ([place] [facility]) [address] [facility] [address], [place], [address], 01/08/2017 18:44:22 01/09/20 17 01/08/2017 urina lysis , dipst ick appearance urine CLEAR slight ly cloudy Not Available [facility] ([place] [facility]) [address] [facility] [address], [place], [address], 01/08/2017 18:44:22 01/09/20 17 01/08/2017 urina lysis , dipst ick glucose urine NEGATI VE negati ve Not Available [facility] ([place] [facility]) [address] [facility] [address], [place], [address], 01/08/2017 18:44:22 01/09/20 17 01/08/2017 urina lysis , dipst ick bilirubin urine NEGATI VE negati ve Not Available [facility] ([place] [facility]) [address], [place], [address], 01/08/2017 18:44:22 01/09/20 17 01/08/2017 urina lysis , dipst ick ketone urine NEGATI VE negati ve Not Available [facility] ([place] [facility]) [address], [place], [address], 01/08/2017 18:44:22 01/09/20 17 01/08/2017 urina lysis , dipst ick specific gravity urine 1.021 1.010- 1.030 Not Available [facility] ([place] [facility]) [address], [place], [address], 01/08/2017 18:44:22 01/09/20 17 01/08/2017 urina lysis , dipst ick blood urine NEGATI VE negati ve Not Available [facility] ([place] [facility]) [address], [place], [address], 01/08/2017 18:44:22 01/09/20 17 01/08/2017 urina lysis , dipst ick pH urine 5.0 5.0-8. 0 Not Available [facility] ([place] [facility]) [address], [place], [address], 01/08/2017 18:44:22 01/09/20 17 01/08/2017 urina lysis , dipst ick protein urine NEGATI VE mg/dL <10 Not Available [facility] ([place] [facility]) [address], [place], [address], 01/08/2017 18:44:22 01/09/20 17 01/08/2017 urina lysis , dipst ick urobilinogen urine NEGATI VE negati ve Not Available [facility] ([place] [facility]) [address] [address], [place], [address], 01/08/2017 18:44:22 01/09/20 17 01/08/2017 urina lysis , dipst ick nitrite level NEGATI VE negati ve Not Available [facility] ([place] [facility]) [address] [address], [place], [address], 01/08/2017 18:44:22 01/09/20 17 01/08/2017 urina lysis , dipst ick leukocyte est urine NEGATI VE negati ve Not Available [facility] ([place] [facility]) [address] [address], [place], [address], 01/08/2017 18:44:22 01/09/20 17 01/08/2017 urina lysis , compl ete red blood cells urine 3 /hpf 0-3 Not Available [facility] ([place] [facility]) [address], [address], 01/08/2017 19:03:16 01/09/20 17 01/08/2017 urina lysis , compl ete white blood cells urine 1 /hpf 0-4 Not Available [facility] ([place] [facility]) [address] [address], [place], [address], 01/08/2017 19:03:16 01/09/20 17 01/08/2017 urina lysis , compl ete mucous urine PRESEN T absent abnormal Not Available [facility] ([place] [facility]) [address] [address], [place], [address], 01/08/2017 19:03:16 01/09/20 17 01/08/2017 urina lysis , compl ete squamous epith cells urine FEW /lpf Not Available [facility] ([place] [facility]) [address] [address], [place], [address], 01/08/2017 19:03:16 01/09/20 17 01/08/2017 cultu re, urine urine cult SEE NOTE TEXT Sourc e: Urine Colle cted: 01/08 13:38 Site: CLEAN CATCH Recei jacqueline : 01/08 21:15 Urine Cult FINAL 01/09 15:43 No growt h Not Available [facility] ([place] [facility]) [address], [address], 01/09/2017 15:44:48 02/24/20 17 02/23/2017 ALT (rosalba ine amino trans feras e), serum or plasm a ALT 19 IU/L 6-45 Not Available [facility] ([place] [facility]) [address] [address], [place], [address], 02/23/2017 14:46:49 02/24/20 17 02/23/2017 lipid panel , serum cholesterol level 155 mg/dL 110-19 9 Adult Nurys stero l Inter preta tion: Valentin able: <200 Borde rline :200- 239 High >239 Not Available [facility] ([place] [facility]) [address], [address], 02/23/2017 14:46:50 02/24/20 17 02/23/2017 lipid panel , serum triglyceride s 160 mg/dL 40-150 high Adult Trigl yceri de Inter preta tion: Valentin able <150 Borde rline 150-1 99 High >199 Not Available [facility] ([place] [facility]) [address], [address], 02/23/2017 14:46:50 02/24/20 17 02/23/2017 lipid panel , serum HDL 44 mg/dL 40-70 HDL Inter preta tion: Low Less than 40 Valentin able great er than 40 Not Available [facility] ([place] [facility]) [address], [address], 02/23/2017 14:46:50 02/24/20 17 02/23/2017 lipid panel , serum LDL 79 mg/dL 70-129 Adult LDL Inter preta tion: Valentin able <130 Borde rline 130-1 59 High >159 An Accur ate calcu lated LDL is obtai dexter when the patie nt is fasti ng 12 hours . Not Available [facility] ([place] [facility]) [address], [address], 02/23/2017 14:46:50 02/24/20 17 02/23/2017 lipid panel , serum chol HDL ratio 3.5 2.0-5. 0 Not Available [facility] ([place] [facility]) [address], [address], 02/23/2017 14:46:50 02/24/20 17 02/23/2017 lipid panel , serum hours fasting 12 hours Not Available [facility] ([place] [facility]) [address], [address], 02/23/2017 14:46:50 02/24/20 17 02/23/2017 gluco se, fasti ng, QN, serum or plasm a glucose 87 mg/dL 67-99 Not Available [facility] ([place] [facility] [address], [address], 02/23/2017 14:46:51 02/24/20 17 02/23/2017 HbA1c (hemo globi n A1c), blood A1C 5.4 % 4.3-5. 8 Not Available [facility] ([place] [facility]) [address], [address], 02/23/2017 17:44:40 07/05/20 17 07/05/2017 PSA, serum or plasm a PSA diagnostic 3.987 normal Not Available [facility] [address] [place], [address], 07/06/2017 09:16:36 01/25/20 18 01/24/2018 uric acid, serum or plasm a uric acid 7.0 mg/dL 3.5-8. 5 Not Available [facility] ([place] [facility] [address] [place], [address], 01/24/2018 14:22:42 01/25/20 18 01/24/2018 ALT (rosalba ine amino trans feras e), serum or plasm a ALT 30 IU/L 6-45 Not Available [facility] ([place] [facility]) [address], [address], 01/24/2018 14:22:43 01/25/20 18 01/24/2018 lipid panel , serum cholesterol level 155 mg/dL 110-19 9 Adult Nurys stero l Inter preta tion: Valentin able: <200 Borde rline :200- 239 High >239 Not Available [facility] ([place] [facility]) [address], [address], 01/24/2018 14:22:44 01/25/20 18 01/24/2018 lipid panel , serum triglyceride s 137 mg/dL 40-150 Adult Trigl yceri de Inter preta tion: Valentin able <150 Borde rline 150-1 99 High >199 Not Available [facility] ([place] [facility]) [address], [address], 01/24/2018 14:22:44 01/25/20 18 01/24/2018 lipid panel , serum HDL 43 mg/dL 40-70 HDL Inter preta tion: Low Less than 40 Valentin able great er than 40 Not Available [facility] ([place] [facility]) [address], [address], 01/24/2018 14:22:44 01/25/20 18 01/24/2018 lipid panel , serum LDL 85 mg/dL 70-129 Adult LDL Inter preta tion: Valentin able <130 Borde rline 130-1 59 High >159 An Accur ate calcu lated LDL is obtai dexter when the patie nt is fasti ng 12 hours . Not Available [facility] ([place] [facility]) [address], [address], 01/24/2018 14:22:44 01/25/20 18 01/24/2018 lipid panel , serum chol HDL ratio 3.6 2.0-5. 0 Not Available [facility] ([place] [facility]) [address] [facility] [address], [place], [address], 01/24/2018 14:22:44 01/25/20 18 01/24/2018 lipid panel , serum hours fasting 12 hours Not Available [facility] ([place] [facility]) [address] [facility] [address], [place], [address], 01/24/2018 14:22:44 01/25/20 18 01/24/2018 gluco se, fasti ng, QN, serum or plasm a glucose 106 mg/dL 67-99 high Not Available [facility] ([place] [facility]) [address] [address], [place], [address], 01/24/2018 14:22:45 01/25/20 18 01/24/2018 HbA1c (hemo globi n A1c), blood A1C 5.6 % 4.3-5. 8 Not Available [facility] ([place] [facility] [address] [address], [place], [address], 01/24/2018 16:19:52 08/30/20 18 08/30/2018 gluco se, QN [mass /volu me], serum or plasm a glucose 105 mg/dL 67-99 high Not Available [facility] ([place] [facility]) [address] [facility] [address], [place], [address], 08/30/2018 14:04:40 08/30/20 18 08/30/2018 HbA1c (hemo globi n A1c), blood A1C 5.5 % 4.3-5. 6 Not Available [facility] ([place] [facility]) [address] [facility] [address], [place], [address], 08/30/2018 19:06:45 Result Notes None recorded. Problems Name Problem SNOMED Code Status Onset Date Resolution Date Notes Provider Name and Address Organization Details Recorded Time Mixed hyperlip idemia 197224646 Completed 09/05/2018 Silver Shen MD [address] [place], [address], [place] 8 11:07:56 Gastroes ophageal reflux disease 678003589 Active Morgan ching, [place] 6 19:48:37 Eruption 161453964 Completed 04/11/2009 Morgan Barton null, [place] 6 19:48:37 Constipa tion 99885124 Completed 200709/30/2011 Morgan Barton null, [place] 6 19:48:37 Gout 25655601 Active Morgan ching, [place] 6 19:52:48 Overweig ht 293043826 Completed 09/05/2018 Silver Shen MD [address] [place], [address], [place] 8 11:06:41 Impacted cerumen 84388420 Completed 12/25/2008 Morgan ching, [place] 6 19:48:37 Acute pharyngi tis 606145467 Completed 200512/25/2008 Morgan Barton null, [place] 6 19:48:37 Myalgia/ myositis - multiple 948308430 Completed 200505/21/2011 Morgan Barton null, [place] 6 19:48:37 Vitamin D deficien cy 05275265 Active Morgan Barton null, [place] 6 19:48:37 Pure hypercho lesterol emia 062738139 Completed 200305/21/2011 Morgan Barton null, [place] 6 19:48:37 Hemorrha ge of rectum and anus 832876029 Completed 05/21/2011 Morgan Barton null, [place] 6 19:48:37 Renal function tests outside referenc e range 471624123 Completed 05/21/2011 Morgan ching, [place] 6 19:48:37 Impaired fasting glycemia 626283463 Active improved Morgan ching, [place] 6 19:52:48 Conjunct ivitis 9624896 Completed 04/11/2009 Morgan ching, [place] 6 19:48:37 Asthma 216483415 Active mild intermit tent Morganluis Barton null, [place] 6 19:52:48 External hemorrho ids 26288327 Active saw Dr. Garrett occasion al Silver Shen MD [address] [facility] [place], [address], [place] 8 11:07:32 Allergy Active Morgan ching, [place] 19:52:48 Hemorrho ids 54737117 Completed 200309/30/2011 Morganluis ching, [place] 6 19:48:37 Kidney stone 95605037 Active Dr. Yanna ching, [place] 6 19:52:48 Constipa tion 65687158 Active Morgan ching, [place] 6 19:48:37 Ankle edema 08152770 Active Morgan ching, [place] 6 19:52:48 Closed fracture of hip 849450419 Active 11/02 with ongoing pain as of 07/05 and followin g with ortho takes prn lisail Silver Shen MD [address] [facility] [place], [address], [place] 8 11:04:32 Lower urinary tract symptoms due to benign prostati c hypertro phy 08484864393 101 Active Morgan ching, [place] 6 19:52:48 Gastroes ophageal reflux disease without esophagi tis 685892089 Completed 201609/05/2018 Silver Shen MD [address] [facility] [place], [address], [place] 8 11:07:04 Paresthe raj of foot 115414736 Active 2017 EMG 7/2 abnormal emg showing 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 Procedures Surgical History Date Name Laterality Status Provider Name and Address Organization Details Recorded Time 09/05/20 18 Fall Risk Assessment completed Hakeem Lopez [place] 09/05/2018 10:49:50 02/08/20 18 Fall Risk Assessment completed Lina Rojas [place] 02/07/2018 10:31:44 09/02/20 17 Fall Risk Assessment completed Lina Rojas [place] 09/02/2017 10:55:05 03/04/20 17 Fall Risk Assessment completed Lina Rojas [place] 03/04/2017 08:31:17 09/04/20 16 Fall Risk Assessment completed Lnia Rojas [place] 09/04/2016 10:48:07 03/09/20 16 Fall Risk Assessment completed Lina Rojas [place] 03/09/2016 10:39:12 10/17/20 15 Fall Risk Assessment completed Renetta Cisneros [place] 10/17/2015 09:28:30 06/28/20 15 Fall Risk Assessment completed Lina Rojas [place] 06/28/2015 09:04:07 02/09/20 15 Fall Risk Assessment completed Lina Rojas [place] 02/08/2015 09:05:02 10/05/20 14 Fall Risk Assessment completed Lina Rojas [place] 10/05/2014 09:31:55 06/25/20 14 Depression Screen (PHQ-2) completed Aziza Rose [place] 06/25/2014 13:55:49 03/15/20 14 Fall Risk Assessment completed Lina Rojas [place] 03/15/2014 10:29:07 03/15/20 14 Depression Screen (PHQ-2) completed Lina Rojas [place] 03/15/2014 10:29:07 10/05/20 13 Fall Risk Assessment completed Lina Rojas [place] 10/05/2013 08:58:40 10/05/20 13 Depression Screen (PHQ-2) completed Lina Rojas [place] 10/05/2013 08:58:40 01/27/20 13 Depression Screen (PHQ-2) completed Lina Rojas [place] 01/26/2013 10:20:23 09/29/20 12 Depression Screen (PHQ-2) completed Lina Rojas [place] 09/29/2012 10:58:08 Total hip arthroplasty completed Morgan Barton [place] 03/04/2017 09:03:44 Tonsillectomy completed Not Available [facility] 09/02/2011 05:51:12 Imaging Results None recorded. Procedure Notes None recorded. Medical Equipment None Reported. Allergies No known drug allergies Medications Name Sig Start Date Stop Date Status Note LastModified by Organization Details LastModified Time Miralax 17 gram/dose oral powder Take by oral route. active Not Available Not Available No t Available Anusol-HC 2.5 % rectal cream with applicator apply to anus 3-4 times daily as needed 09/02 completed Not Available Not Available Not Available hydrocodon e 5 mg-acetami nophen 325 mg tablet Take 1 tablet every 6 hours by oral route. active Not Available Not Available No t Available meloxicam 15 mg tablet 09/05 completed Not Available Not Available Not Available Advair Diskus 100 mcg-50 mcg/dose powder for inhalation Inhale 1 puff 2 times a day by inhalati on route; wash out mouth after use 2009 active prn Not Available Not Available Not Avai lable ciprofloxa alivia 500 mg tablet active Not Available Not Available Not Available aspirin 81 mg tablet,del ayed release Take 1 tablet every day by oral route. 09/05 completed Not Available Not Available Not Available doxycyclin e monohydrat e 100 mg tablet Take 1 tablet twice a day by oral route with meals for 21 days. 2007 active Not Available Not Available Not Avai lable oxycodone- acetaminop hen 5 mg-325 mg tablet active Not Available Not Available Not Available Proctozone -HC 2.5 % topical cream perineal applicator APPLY RECTALLY 3-4 TIMES DAILY NEEDED. 09/02 completed Not Available Not Available Not Available Bleph-10 10 % eye drops 2 drops q 3 hr in both eyes x 7 days 2008 active Not Available Not Available Not Avai lable indomethac in 50 mg capsule Take 1 capsule (50 mg) by oral route up to 3 times per day with food; d/c once tolerabl e 2008 active prn Not Available Not Available Not Avai lable omeprazole 20 mg capsule,de layed release TAKE 1 CAPSULE BY MOUTH EVERY DAYDUE FOR APPT active Not Available Not Available No t Available albuterol 90 mcg/actuat ion aerosol inhaler Inhale 2 puffs every 4 hours by inhalati on route as needed. 09/05 completed Not Available Not Available Not Available Vitamin D2 1,250 mcg (50,000 unit) capsule Take 1 capsule every week by oral route for 84 days. 12/28 completed Not Available Not Available Not Available ketoconazo le 2 % topical cream Apply to rash once to twice daily unitl rash gone plus 5 days. not > 1 month 2007 active Not Available Not Available Not Avai lable Retin-A 0.01 % topical gel APPLY TO THE AFFECTED AREA(S) BY TOPICAL ROUTE ONCE DAILY active Not Available Not Available No t Available Ventolin HFA 90 mcg/actuat ion aerosol inhaler TAKE 2 PUFFS BY MOUTH EVERY 4 HOURS active Not Available Not Available No t Available albuterol active prn Not Available Not Deepali ilable Not Available Advil active prn Not Available Not Availa ble Not Available isotretino in active 30 mg daily - Adan Alejandro Not Available Not Available Not Available Vitamin D3 active 2000u qd Not Available Not Available Not Available omeprazole 20 mg tablet,del ayed release Take 1 tablet every day by oral route for 90 days. 2010 active Not Available Not Available Not Avai lable Solodyn 115 mg tablet,ext ended release active 1 tab daily/s kin meds Not Available Not Available Not Available Absorica 40 mg capsule active Not Available Not Available Not Available Vitals Date Recorded Body mass index (BMI) Heart rate Body weight Oxygen saturation Oxygen saturation in Arterial blood by Pulse oximetry Body height Respiratory rate Systolic blood pressure Diastolic blood pressure Provider Name and Address Organization Details Last Updated DateTime 6 33.1 kg/m2 88 /min 493202. 45826 g 98 % 98 % 187.96 cm 12 /min 122 mm[Hg] 80 mm[Hg] Lina Rojas [place] [facility] [place] 6 10:48:07 Date Recorded Body weight Body height Body mass index (BMI) Oxygen saturation Oxygen saturation in Arterial blood by Pulse oximetry Heart rate Respiratory rate Systolic blood pressure Diastolic blood pressure Provider Name and Address Organization Details Last Updated DateTime 7 480134. 24 g 187.96 cm 33 kg/m2 96 % 96 % 77 /min 14 /min 120 mm[Hg] 72 mm[Hg] Lina Rojas [place] [facility] [place] 7 08:30:31 Date Recorded Body weight Body mass index (BMI) Body height Heart rate Respiratory rate Oxygen saturation Oxygen saturation in Arterial blood by Pulse oximetry Systolic blood pressure Diastolic blood pressure Provider Name and Address Organization Details Last Updated DateTime 7 779999. 83 g 33.1 kg/m2 187.96 cm 77 /min 12 /min 98 % 98 % 122 mm[Hg] 78 mm[Hg] Lina Rojas [place] 7 10:54:23 Date Recorded Body height Body mass index (BMI) Body weight Heart rate Respiratory rate Oxygen saturation Oxygen saturation in Arterial blood by Pulse oximetry Systolic blood pressure Diastolic blood pressure Provider Name and Address Organization Details Last Updated DateTime 8 187.96 cm 34 kg/m2 614115. 98 g 78 /min 12 /min 97 % 97 % 122 mm[Hg] 70 mm[Hg] Lina Rojas [place] [facility] [place] 8 10:31:00 Date Recorded Body height Body mass index (BMI) Body weight Oxygen saturation Oxygen saturation in Arterial blood by Pulse oximetry Heart rate Respiratory rate Systolic blood pressure Diastolic blood pressure Provider Name and Address Organization Details Last Updated DateTime 8 187.96 cm 33.9 kg/m2 783943. 39 g 99 % 99 % 72 /min 16 /min 142 mm[Hg] 89 mm[Hg] Hakeem Lopez [place] [facility] [place] 8 10:51:39 Date Recorded Systolic blood pressure Diastolic blood pressure Provider Name and Address Organization Details Last Updated DateTime 09/05/2018 146 mm[Hg] 88 mm[Hg] Silver Shen MD [address] [place] [address] [place], [address], [place] [facility] [place] 09/05/2018 11:20:58 Social History Question Answer Notes LastModified by Organization Details LastModified Time Tobacco Smoking Status Never Smoker Not Available [facility] 09/02/2011 05:25:17 Do You Have An Advance Directive? No Info Given 09-02-17 - Ng Information not available 09/30/2011 What Is Your Level Of Alcohol Consumption? None Decided To Stop; No Problem, He Says Information not available 09/02/2017 What Is Your Level Of Caffeine Consumption? Moderate Coffee cbergeron Information not available 05/21/2011 How Much Tobacco Do You Chew? None Information not available 09/05/2018 Which Illicit Or Recreational Drugs Have You Used? 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 No Information not available 09/02/2011 Carbon Monoxide Detector Yes Information not available 09/30/2011 Marital Status Has A Girlfriend; He Still Sees His 2 Step-childre n And He Has 3 Step-grandch ildren Whom He Sees Weekly Information not available 04/11/2009 What Was The Date Of Your Most Recent Tobacco Screening? 09/05/2018 Information not available 05/10/2019 Seat Belts Used Routinely Yes [email or web address] Information not available 09/02/2011 Smoke Alarm In Home Yes [email or web address] Information not available 09/02/2011 How Much Tobacco Do You Smoke? No Information not available 09/30/2011 General Stress Level Low [email or web address] Information not available 09/02/2011 Do You Use Sunscreen Routinely? No Encouraged To Use Always Information not available 09/04/2016 Sex: Unknown Functional Status Question Answer Note LastModified by Organizat ion Details LastModified Time What is your exercise level? Occasional he has begun skiing and will go weekly; he walks 3-4 miles 3-4 days weekly Information not available 04/11/2009 Mental Status None recorded. Family History Relationship Description Onset Age of this Age Resolved Age Notes LastModified by Organization Details LastModified Time Maternal Grandfather Type 2 diabetes mellitus [email or web address] Not available 2015 11:38:08 Mother Alzheimer's disease [email or web address] Not available 2015 11:38:08 Paternal Grandmother Rheumatoid arthritis [place] Not available 2015 11:38:08 Paternal Grandmother Malignant neoplasm of lung [email or web address] Not available 2015 11:38:08 Medical History Condition Response Date of Last Wellness Visit (format mm/d d/yy) Y Colonoscopy Y Physical Exam Y Immunizations Vaccine Type Date Status Note Provider Nam e and Address Organization Details Recorded Time Tdap 3 completed Not Available [facility] 11/04/2019 02:09:18 Influenza, split virus, quadrivalent, PF 3 completed Not Available [facility] 11/04/2019 02:11:34 Influenza, split virus, trivalent, preservative 1 completed Lina Rojas [facility], [place] [facility] [place] 09/30/2011 13:49:53 zoster live 4 completed Not Available [facility] 11/04/2019 02:08:02 Influenza, split virus, quadrivalent, PF 4 completed Not Available [facility] 11/04/2019 02:11:51 pneumococcal polysaccharide PPV23 4 completed Not Available [facility] 11/04/2019 02:06:28 Influenza, high-dose, trivalent, PF 6 completed Not Available [facility] 11/04/2019 02:12:24 Influenza, high-dose, trivalent, PF 7 completed Not Available [facility] 11/04/2019 02:14:01 Influenza, high-dose, trivalent, PF 8 completed Not Available [facility] 11/04/2019 02:15:35 Novel [id number] 01/07/201 0 completed Not Available [facility] 11/04/2019 02:09:57 Past Encounters Encounter ID Performer Location Encounter Start Date Encounter Closed Date Diagnosis/Indication Diagnosis SNOMED-CT Code Diagnosis ICD10 Code Diagnosis Note [id number] RANDELL Gunderson [address] [place] [address] 03/11/2006 09:23:52 12/31/2007 03:19:17 [id number] MD Chepe Bledsoewick [address] [place] [address],[address] [place] [address] 12/27/2003 08:42:42 12/31/2007 03:22:57 [id number] MD Florencia Bledsoe [address] [place] [address],[address] [place] [address] 09/05/2004 00:00:00 12/31/2007 03:22:57 [id number] MD Florencia Bledsoe [address] [place] [address],[address] [place] [address] 05/13/2006 14:47:39 12/31/2007 03:22:57 [id number] MD Chepe Bledsoewick [address] [place] [address],[address] [place] [address] 02/12/2006 09:19:26 12/31/2007 03:22:57 [id number] MD Chepe Bledsoewick [address] [place] [address],[address] [place] [address] 09/30/2006 14:15:17 12/31/2007 03:22:57 [id number] MD Chepe Bledsoewick [address] [place] [address],[address] [place] [address] 01/20/2007 15:01:30 12/31/2007 03:22:57 [id number] MD Florencia Bledsoe [address] [place] [address],[address] [place] [address] 11/29/2003 10:35:56 12/31/2007 03:22:57 [id number] MD Florencia Bledsoe [address] [place] [address],[address] [place] [address] 06/05/2004 09:00:45 06/12/2004 21:35:10 [id number] Morgan Barton MD [place] [address] [facility],[address] [place] [address] 07/06/2007 10:20:16 12/31/2007 03:22:57 [id number] Morgan Barton MD [place] [address] [facility],[address] [place] [address] 11/24/2007 10:49:59 12/31/2007 03:22:57 [id number] Morgan Barton MD [place] [address] [facility],[address] [place] [address] 06/13/2008 11:14:34 06/13/2008 12:40:47 [id number] Morgan Barton MD [place] [address] [facility],[address] [place] [address] 10/25/2008 09:15:44 10/25/2008 10:13:18 [id number] RANDELL Quinones [place] [address] [facility],[address] [place] [address] 12/25/2008 11:08:30 12/25/2008 11:46:04 [id number] Morgan Barton MD [place] [address] [facility],[address] [place] [address] 04/11/2009 09:49:20 04/15/2009 09:03:43 [id number] RANDELL Gunderson [place] [address] [facility],[address] [place] [address] 05/20/2009 13:35:44 05/20/2009 16:40:04 [id number] Morgan Barton MD [place] [address] [facility],[address] [place] [address] 10/24/2009 09:17:27 10/24/2009 12:11:25 [id number] Morgan Barton MD [place] [address] [facility],[address] [place] [address] 04/10/2010 08:57:45 04/10/2010 09:46:48 [id number] RANDELL Quinones [address] [place] [address] 05/26/2010 09:52:35 05/26/2010 11:22:16 [id number] Morgan Barton MD [address] [place] [address] 09/19/2010 09:52:05 09/19/2010 10:40:00 [id number] Morgan Barton MD [address] [place] [address] 05/21/2011 10:19:07 05/21/2011 11:07:33 [id number] Morgan Barton MD [address] [place] [address] 09/30/2011 13:23:33 09/30/2011 14:39:44 [id number] RANDELL Gunderson [address] [place] [address] 11/02/2011 08:47:23 11/02/2011 11:11:28 [id number] Morgan Barton MD [address] [place] [address] 09/29/2012 10:45:31 09/29/2012 12:29:17 [id number] Morgan Barton MD [address] [place] [address] 01/26/2013 10:09:07 01/26/2013 13:47:45 [id number] Morgan Barton MD [address] [place] [address] 10/05/2013 08:47:34 10/05/2013 09:43:26 Adult health examination 465969541 He reports doing well and has been working very hard. He is considerin g retiring in the next year or two. I urged him to try to work in more activity and to work on weight loss with diet and exercise. External hemorrhoids 94105581 He had seen Dr. Garrett and did not want surgery or banding. I advised him to consider some treatment. I stressed the need to control any constipati on if he has some. To call with problems. Gout 29195699 He denie s having had a gout episode in a long time and he has cut back on his alcohol intake. He was using Advil prn with good effect when he had a flare. To call with any issues. Gastroesop hageal reflux disease 629470076 He says that he uses the omeprazole sporadical ly depending on what he is eating. To call with problems. Asthma 081153429 He says that he has been doing well without recent need for or use of the albuterol. To call with any issues. Overweight 843798790 We talked about trying to lose weight with diet and regular activity. Impacted cerumen 28072794 I made the same recommenda tion for Debrox and irrigation afterward. To call if not fully effective. Influenza vaccine needed [id number] 106 Vitamin D deficiency 54960176 See form. [id number] Morgan Barton MD [address],[facility] e [address] [place] [address] 03/15/2014 10:21:08 03/15/2014 11:26:27 External hemorrhoids 08542600 He says that he still gets symptoms about once monthly. He had seen Dr. Garrett and decided against having surgery or banding due to possible pain and time out of work. He will call if he changes his mind. Gastroesop hageal reflux disease 940367573 He says that he uses the omeprazole which works well for him. Asthma 713659917 He says that he has not needed to use the albuterol in a long time. To call with any problems. Overweight 546000357 He has been active at work and we talked about continuing to work on weight loss. To try to increase his regular activity as tolerated. Vitamin D deficiency 58715974 He had taken the high dose vit D weekly and he has stopped this. He has not been taking anything at present. I spoke with him about the controvers y re vit D and the recent meta analyses re the associatio ns with Vit D levels and CV disease and cancer. I pointed out that there are not cause & effect data thus far. He says that he does want to supplement and will start vit D 2,000 units daily. Administra tion of viral vaccine 07095446 We discussed the varicella vaccine and I answered his questions. He does want to receive the shingles vaccine. Impaired f asting glycemia 346187284 His fasting glucose is slightly elevated at 103 and we discussed the importance of staying active. He says he plans to do more activity. We also talked about losing more weight and he is still working on this. He will recheck a glucose and check a HbA1c in the fall. Ophthalmic examination and evaluation 11871524 To go for a regular eye exam. Mixed hyperlipidemia 601582201 I gave and we discused the cholestero l handout and discussed the new lipid guidelines and associated controvers y. His HDL is fine at 46 and we talked about trying to get into a regular routine of activity. His LDL is good at 83 and we reviewed the10 year Calcuated CV risk of 9.4%. Despite this, he does not want to be on a statin, despite reviewing the recommenda tions. His triglyderi joanne are fine. [id number] RANDELL Gunderson [address] [place] [address] 06/25/2014 13:45:36 06/25/2014 15:27:12 Left flank pain 747676751 ? Renal stone she will increase fluids get labs and the Renal CT to R/O a stone and if sx increase he will call or go to the ER Blood in urine 00958853 [id number] Morgan Barton MD [address] [place] [address] 10/05/2014 09:19:46 10/05/2014 10:28:07 Adult health examination 011495194 He says that he is doing well but is very busy at work and is excited at the prospect of retiring after 40 years some time in 2015. He is active at work but does not do other formal exercise. I urged him to try to lose weight. External hemorrhoids 06118388 He has hemorrhoid s and still is constipate d. I urged him to treat this aggressive ly or the hemorrhoid s will likely return or worsen. He has seen Dr. Garrett in the past and did not want surgery or banding. He is still considerin g this for the future. To call with any issues. Gout 74428161 He has been doing well with his gout and has almost no alcohol. He has used Advil with effect when he has a flare. To call with problems. Gastroesop hageal reflux disease 397417321 He uses omeprazole when he is going to have spicy foods and it works well for him. Asthma 516504701 He has a history of asthma and has been doing well. He has albuterol to use prn. Overweight 746319118 I u rged him to work on weight loss with diet and regular exercise. Impacted cerumen 62144890 I again discussed the use of Debrox and repeated irrigation afterward and to do these for a few days. He should call if not fully effective. Influenza vaccine needed 7942361097 106 Vitamin D deficiency 72564586 His vitamin D is low at 23.9. I advised him to take vit D 2,000 units and he has been and it has been climbing. We will cont to follow it. Abdominal pain 95407338 He has left lower abd pain which was intermitte nt and now is dull and persistent . He feels that it is musculoske letal and I agree. However he has no pain on exam. It is more prominent when he gets up from lying down or sitting. I recommende d rest and Tylenol prn. I am wary about NSAIDs given his renal dysfunctio n. To call if it persists and I would consider labs and further evaluation . I offered these today and he declines. Kidney stone 17567639 He has had the left kidney stone removed by laser by Dr. Raines and he had had a stent placed, since removed. He says he will be going for removal of the stone on the right side. Impaired f asting glycemia 061758282 His fasting glucose is normal at 97 and his A1c is excellent at 5.3%. I encouraged him to stay active and to work on weight loss. Administra tion of pneumococcal vaccine 90435221 Screening for malignant neoplasm of colon 670982800 He is due for a repeat colonoscop y in January with Dr. Garrett. [id number] Morgan Barton MD [address],[facility] e [address] [place] [address] 02/08/2015 08:51:55 02/08/2015 10:27:22 External hemorrhoids 83964891 He has hemorrhoid s which are uncomforta ble and bothersome . He does have intermitte nt constipati on and I stressed the need to treat this. He has used MiraLax and we talked about using this or something regularly to prevent the constipati on of the hemorrhoid s will not hanny, I do not believe. He can use Anusol-HC cream prn. He would like to see Dr. Garrett whom he had seen in the past and I will re-refer him. To call with any problems. Overweight 859113572 He has been working a lot and has not had a lot of time to exercise, he says. I encouraged him to try to make time if possible. He is active at work, he says. To try to cut back on his consumptio n of candy bars, which he has regularly at work, he says. Kidney stone 45528860 He follows with Dr. Raines and denies current problems. He says that he drinks plenty of fluids. He has had the left kidney stone removed by laser by Dr. Raines and he had undergone stent placement. Abdominal pain 56391547 He says that he still has the left lower abdominal to inguinal pain which is intermitte nt. When it occurs it is usually a dull ache but can occasional ly sharp. He denies any bulge and I find none on exam. I am not able to elicit any further tenderness on exam. I am uncertain of the cause of the pain. It does not seem related to the renal stone. He had had a stent placed and perhaps some residual scar tissue is the cause. I offered to have him see surgery for evaluation but he declines. We talked about obtaining a CT and he would like to go for that. I asked him to call if he has any new or worse symptoms. Impaired f asting glycemia 809464210 His fasting glucose is lower at 96 and his A1c is stable and good at 5.3%. We talked about the criteria for diabetes and the importance of weight loss and regular activity. Constipation 46346888 He has intermitte nt constipati on and had used MiraLax in the past. We talked about the need to control this or the hemorrhoid s will not improve. He is willing to try and would like to restart MiraLax although he could use a different medication . I offered to prescribe it but he declines. I emphasized taking it regularly to prevent the problem rather than waiting for the constipati on to occur and treating it after it has occurred. I asked him to call if he has any problems or questions. [id number] Morgan Barton MD [address],[facility] e [address] [place] [address] 06/28/2015 08:57:17 06/28/2015 09:35:38 External hemorrhoids 53122883 He saw Dr. Garrett and will be going for banding of his hemorrhoid s. He is planning on doing this after he retires at the end of July. Kidney stone 39428757 He underwent ESWL for the right sided kidney stone. He had had the left kidney stone removed by laser by Dr. Raines previously with stent placement and then removal. He did not notice any fragments in his urine. Abdominal pain 97427845 He has left sided abd pain which seems to be related to his left hip. The pain is not severe but he feels it much of the time. He will go for an orthopedic evaluation after obtaining hip films. He says that it has not changed with his urologic status and the renal stone for which he went for a recent ESWL of a right sided stone. (A previous stone was on the left.) I asked him to call with any new or worse symptoms or if he does not improve. Pain of hip region 88511283 He has left hip pain and this originally was thought to related to his urologic issues with kidney stones. However, it has not seemed to vary with his urologic symptoms. He has mild pain with external rotation of the left hip. He will obtain x-rays and then see orthopedic s for evaluation . To bring the films with him. Neck pain 27344410 He re ports about a month of neck stiffness with crepitus. No known injury. We discussed usual treatment of anti-infla mmatories but given his renal dysfuction we decided to hold on this and to go for physical therapy. I think this will help him the most and he can learn some exercises to do at home. I asked him to call with new or worse symptoms or if he is not improving. [id number] Barton MD [address] [place] [address] 10/17/2015 09:17:39 10/17/2015 10:14:32 External hemorrhoids 71635243 K64.4 He has hemorrhoid s and says that the constipati on is doing better. He plans to return to see Dr. Garrett after the winter. Gout [id number] M10.9 He says that he has been doing well with any recent episodes of gout and he drinks almost no alcohol. He has used Advil with effect when he has a flare. To call with problems. Gastroesop hageal reflux disease [id number] K21.9 He uses omeprazole intermitte ntly and we talked about GERD. He says that certain foods can trigger it. He should call with any issues. Asthma 601041896 J45.20 He has a history of asthma and has been doing well without recent problems. I refilled the albuterol. Overweight 255965636 E66 .3 Z68.32 His weight is up 7 lbs in the past year and he attributes this to overeating , neo during the holidays. He plans to get the weight down with diet and exercise beginning in October. Kidney stone 52632325 N2 0.0 He has had the left kidney stone removed by laser by Dr. Raines and he had had a stent placed, since removed. He denies any problems and says that he drinks plenty of water. Abdominal pain 77746286 R10.32 His left lower abdominal discomfort improves when he is active and when he exercises, further compelling me to believe that it is musculoske letal. I advised him to call with any new or worse symptoms. Impaired f asting glycemia 594740792 R73.01 His fasting glucose had normalized and we talked about the importance of regular activity and weight loss. He will check labs in a few months. Impacted cerumen 7857139 6 H61.23 I again discussed the use of Debrox and repeated irrigation afterward and to do these for a few days. He should call for an appt if these are not fully effective. Screening for malignant neoplasm of colon 153902151 Z12.11 He is due for a repeat colonoscop y in January with Dr. Klipfel and I will refer him. Cholesterol screening 27 1775414 Z13.164 [id number] Morgan Barton MD [place] [address] [facility],[address] [place] [address] 03/09/2016 09:52:03 03/09/2016 11:15:50 Gout 79275456 M10.9 He says that he has had some flares since he fractures his ankle. He is doing better now. He has used ibuprofen with fair effect. We will see how he does. He has not had regular flares in the past and hopefully this will not become a regular issue. Perhaps his recent overeating is contributi ng. I asked him to call with problems. Overweight 479374253 E66 .3 Z68.33 His weight is up 7 lbs this calendar year and 16 lbs since 06-28-15. He says that he has been overeating and not eating healthily and he has gained weight. We talked about reversing this trend with diet and regular activity as tolerated and allowed. Impaired f asting glycemia 539137190 R73.01 His fasting glucose is high normal at 98 and his A1c continues to trend downward with his last value of 5.2%. I would expect this to increase slightly with his recent weight gain. I encouraged him to lose weight and to try to do regular exercise as tolerated and allowed. Hyperlipidemia 60166997 E78.5 I gave and we discussed the lipid handout. His HDL is 42 and he is trying to stay active. His LDL is 101 and it has trended upward. I reviewed with him the lipid guidelines and his current Calculated CV Risk score is 12.6%. I discussed with him starting a statin and he is not interested at present and wants to see how he can do with diet and exercise. I explained that even if his number were considerab ly improved, he would undoubtedl y still be above the trheshold for recommendi ng medication . He wants to check in the fall. Closed fra cture of hip 643775944 S72.002D He is s/p left hip fracture after falling on ice while skiing in [place] and falling. He had surgery by Dr. Rodriguez at [address] 11-07-15 and he is doing well. He still has some mild achiness and stiffness when he first gets up from sitting but he says that this improves after he gets going. Ankle edema 33750920 R60 .0 He has been getting bilateral ankle edema recently and we talked about this. He admits to having a lot of sodium in his diet and I suspect that with his weight gain, these are contributi ng to the edema. I stressed limiting his sodium consumptio n. I advised him to elevate his LEs when he can. I discussed and offered compressio n stockings but he declines. I spoke with him about furosemide and how it works and its effects on potassium. He also declines this. I am hoping that he will be able to lose weight and limit his sodium ingestion. If he has new or worse or persistent symptoms, he is to call. [id number] Morgan Barton MD [address] [place] [address] 09/04/2016 10:27:54 09/04/2016 11:43:17 Gout 17774351 M10.9 ANNUAL EXAM He says that he has had some flares and had a recent one in his wrist. We talked about this but did not get to the point of discussing treatment given his recurrent episodes. To stay well hydrated and I game him a handout for a low purine diet. He should call with any problems. Overweight 463996951 E66 .3 Z68.33 I urged him to work on weight loss and he says he plans to lose weight once skiing season begins. He has gained it since the left hip injury. Hyperlipidemia 75227602 E78.5 I gave and we discussed the lipid handout. His HDL is 43 and he plans to be active soon once he is allowed full activity due to his hip. His LDL is good at 107 and he is recommende d to be on a statin which I reminded him of due to the increased ASCVD score of 12.6% when last calculated . He wants to recheck again and we will revisit the issue. Closed fra cture of hip 554924663 S72.002D He is s/p left hip fracture after falling on ice while skiing in [place]. He is doing well and the pain is improved. It can ache if he sits for a long time but he has no pain with walking. He is following with his surgeon, Dr. Rodriguez, at [facility]. Ankle edema 07478597 R60 .0 He continues to get bilateral ankle edema and I had an extensive discussion re ingested sodium and that most of the sodium most ingest is due to pre-made/p urchased foods and not just what we add ourselves. I also recommende d compressio n stockings but he declines. I told him about possibly using an intermitte nt diuretic but he declines. I recommende d wt loss. I asked him to call with any problems. Impaired f asting glycemia 790446615 R73.01 His fasting glucose is mildly elevated at 102 and his A1c is discordant at 5.1%. I reviewed the criteria for DM. I urged him to lose weight and to be active, which he plans. Active or passive immunization 133366164 Z23 Asthma 246747082 J45.20 He has a history of asthma and has been doing well without any problems. It can flare when he is exposed to cats. He has albuterol to use prn. Allergy 155848197 Z91.09 He says that he does well unless he is exposed to cats or dust. I suggested using Claritin or an equivalent but he says the allergic symptoms occur so quickly he doesn't think t's practical. It can trigger bronchospa sm which responds to albuterol, he says. He should call with any problems. External hemorrhoids 239 35869 K64.4 He has hemorrhoid s and says that the constipati on is doing better. He plans to call Dr. Garrett to schedule banding. Impacted cerumen 6624380 6 H61.23 He has used Debrox and still has cerumen on the left. He will try again and then will call for an appt if he is not successful . Kidney stone 75504292 N2 0.0 He is s/p left kidney stone removal by Dr. Raines and he is doing well s/p a Resume procedure. He tries to stay well hydrated. On no special stone diet. Lower urin lizzy tract symptoms due to benign prostatic hypertrophy 3712545491 9101 N40.1 He had intermitte nt trouble voiding with slow stream and hesitancy. Now, after the Resume procedure with Dr. Raines, he is doing well and his symptoms are improved. [id number] Morgan Barton MD [place] [address] [facility],[address] [place] [address] 03/04/2017 08:09:20 03/04/2017 09:00:29 Gout 97240341 M10.9 He reports that his gout has been doing well and he says that he has stopped drinking all alcohol and feels that this has helped.He knows to stay well hydrated. Hyperlipidemia 26937982 E78.5 I gave and we discussed the lipid handout. His HDL is edging upward to 44 and he plans to increase his activity. His LDL is down to 79. His TG are sl elevated at 160. We talked again about his ASCVD score which is now at 12.1%. I spoke with him at length about statins, how they work, some evidence of anti-infla mmatory activity, stabilizat ion of plaque, and possible side effects such as m. and liver inflammati on, memory issues, etc. We talked about checking side effect labs, etc. He declines today and says he will consider starting one. He will call if he would like to. Closed fra cture of hip 584953141 S72.002D He is s/p left hip fracture after falling on ice while skiing in [place]. He says that he is doing well and is walking. Running caused some pain so he stopped this and I think it is burgos.He had followed with his surgeon, Dr. Rodriguez, at [facility]. Impaired f asting glycemia 142693236 R73.01 His fasting glucose is normal with his value at 87 and his recent A1c up to 5.4%. He is active and plans to increase his exercise, which I commended. I also urged him to work on wt loss. External hemorrhoids 239 38499 K64.4 He has hemorrhoid s and had the worst one banded by Dr. Garrett. He is doing well with this and is on a regular regimen of MiraLax for constipati on control. Gastroesop hageal reflux disease without esophagitis 485974164 K21.9 He does well with his reflux since he stopped drinking and have acidic foods and since he retired. I spoke with him about the recent studies re possible risks of oil heaterman acid suppressio n including memory and renal problems and bone thinning. He will try to see how he does weaning down the medication . He does not take it daily at present, he says. Obese 009676518 E66.9 Z68.33 We talked about wt loss and I encouraged him to work on this. He says he is hoping to get down to 23-235 lbs. [id number] Morgan Barton MD [address] [place] [address] 09/02/2017 10:44:31 09/02/2017 12:10:56 Gout 69116195 M10.9 ANNUAL EXAM He says that he has been doing well without a recent flare. He had felt one coming on this summer but he took some ibuprofen and aborted it. To call with problems.H e drinks plenty of fluids. He will check a uric acid level. Overweight 926564675 E66 .3 Z68.33 We talked about the need to lose weight with primarily diet and also regular activity as tolerated. Hyperlipidemia 99878980 E78.5 His ASCVD risks score has been elevated but he has not wanted to be on a statin. He has wanted to see if he can get his panel better, although I have warned that as one ages, often improving the lipid panel does not always lower the risk score below 7.5%, neo since the algorithm is age-weight ed. Closed fra cture of hip 177489467 S72.002D He is s/p left hip fracture last year after falling on ice while skiing in [place]. He is much improved and he skied for the first time this season recently. He still gets some pain if he sits for too long and walking helps it. He occas using ibuprofen. He was seeing Dr. Rodriguez, ortho, at [facility]. He had done the surgery. He was d/c'ed from f/u with Dr. Rodriguez. Ankle edema 30398587 R60 .0 He continues to get bilateral ankle edema but says that it has not been bad. I reviewed the importance of limiting sodium intake and we talked about compressio n stockings again. He again declines. I asked him to call with or worse symptoms. Impaired f asting glycemia 889463725 R73.01 His fasting glucose has been mildly elevated in the past and I again urged him to try to lose weight and to stay active. He will recheck labwork. Asthma 412760715 J45.20 He has a history of asthma and has been doing well without any recent symptoms. He says he has not needed the albuterol for a few years. I offered to refill the albuterol but he declines at present and says he will call if the symptoms flare. Allergy 071079815 Z91.09 He says that he does well unless he is exposed to cats or dust. I again suggested using Claritin or Zyrtec but he says he does not think he would need it. To call with any problems. He has albuterol to use prn and I asked him to call with any problems. External hemorrhoids 239 78568 K64.4 He has hemorrhoid s and has been doing well in general after Madeleine Garrett banded the large ones. He has been having very mild BRB recently from a small hemorrhoid . He says that if gets worse or is a problem, he will call Dr. Garrett for treatment as recommende brandon. Impacted cerumen 4924453 6 H61.23 He has bilateral cerumen impaction and he has used Debrox in the past. I reviewed with him how to use but to do the irrigation at least 20-30 times. If he does not have success, to call here for a next day appt for irrigation . Lower urin lizzy tract symptoms due to benign prostatic hypertrophy 7141092196 9101 N40.1 Since the Resume procedure with Dr. Raines, he has been doing better. He says that he has intermitte nt nocturia ranging from 0-2 times night. Kidney stone 35772589 N2 0.0 He is s/p left kidney stone removal by Dr. Raines and he is doing well s/p a Resume procedure. He drinks plenty of fluids. He is not on a special stone diet. Active or passive immunization 626795120 Z23 Gastroesop hageal reflux disease 741912172 K21.9 He uses omeprazole and we talked about the risks of memory and renal problems as well as decreased bone density. I spoke with him about stopping it and the rebound possible reflux that can result. He will try and can use OTC antacids. We talked about lifestyle changes with not eating before bed, working on wt loss, avoiding caffeine, etc. To call with problems. [id number] Morgan Barton MD [place] [address] [facility],[address] [place] [address] 02/07/2018 10:09:20 02/07/2018 11:15:38 Gout 64678840 M10.9 He denies any recent gout flares and says that he drinks plenty of fluids - for this and his hx of a renal stone. He has used ibuprofen for flares. We reviewed his uric acid level which was 7.0. Overweight 421839526 E66 .3 Z68.34 His weight is up 7 lbs from his last visit, 8 lbs in the past year. 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 He admits to having chocolate cake with some regularity and also not being as active as he used to be when he worked. In addition, he tends to snack more since he is at home and no longer skips any meals. Hyperlipidemia 80270433 E78.5 I gave and we discussed the lipid handout. His HDL is adequate at 43 and he does walk regularly, although he feels he could do more. He says that he did a lot of skiing this past winter. His LDL is 85 and he still does not wish to start a statin despite the fact that his ASCVD risk score has been elevated which we have reviewed. His TG are normal at 137. Impaired f asting glycemia 193078280 R73.01 His fasting glucose is up to 106 and his weight gain may be responsibl e. His A1c has increased further and is up to 5.6% after being 5.1% in 08/2016. We reviewed these trends and discussed his weight gain. I urged him to stay active and to work on weight loss. He will recheck labs prior to his next appt. Paresthesia of foot 8723 35609 R20.2 He reports having bilateral toe paresthesi as with pins and needles and mild hypesthesi a on exam. This does not seem to be related to activity or footwear. He has no UE symptoms. It may be due to his pre-diabet es but I feel that it warrants a full evaluation . We discussed possible etiologies including B12 deficiency , heavy metal toxicity, etc. We talked about ordering labwork but decided to hold off and wait for neurology' s input, where he would like to be referred.I asked him to call with any new or worse symptoms. [id number] Silver Shen MD [address] [place] [address] 09/05/2018 10:41:23 09/05/2018 11:45:16 Adult health examination 775462456 Z00.01 Reviewed risk factors and treatment options Establishe d an electronic screening schedule which was provided for the patient Reviewed lifestyle and provided health advice and discussed possible interventi ons Reviewed care team Paresthesia of foot 3090 24944 R20.2 cont f/u with neuro Gastroesop hageal reflux disease 437734940 K21.9 reviewed his sxrec'd slow wean if possible as it sounds like he hasn't done this in the past Closed fra cture of hip 798015167 S72.001D cont f/u with ortho Kidney stone 18277977 N2 0.0 he had seen uro in the past but Dr Raines might not be making more aptswee discussed ordering an US, but he was in favor of getting a new urologist in [place] Body mass index 30+ - obesity 331041388 Z68.33 Long-term drug therapy 697017518 Z79.899 given the length of time that he has been on the PPI will check the below labs. Asthma 203024242 J45.90 9 rare if ever use of albuterol, but will refill External hemorrhoids 239 74173 K64.4 rec'd better control of constipati on Constipation 49559504 K5 9.00 as aboverevie wed his diet which could be a lot better Lower urin lizzy tract symptoms due to benign prostatic hypertrophy 8560632770 9101 N40.1 d/w him doing an exam and he thinks he will get a urologist, likely in [facility] previous PSAs, then have been stable b/n 3.7-3.9 since 2014, but before that there was a jumpwill recheck Impaired f asting glycemia 705108686 R73.01 last numbers were goodrec'd a better diet Gout 94255596 M10.9 no issues since he stopped drinking Preventive procedure 169 707546 Z29.9 We reviewed the ARRIVE trial and/or the ASCEND trial. (ARRIVE: Lancet Jun 12. About 6[address]60 non diabetic patients were randomized to 100 mg of aspirin or placebo daily. Enrolled were men 55 or older and had 2 or more CV risk facotrs and women 60 or older with 3 or more CV risk factors. During average f/u of 5 years, there was no CV benefit, about 4% NC or stroke in both groups, and GI bleed was slightly but statistica lly significan tly more common with aspirin (1% vs 0.5%, P= 0.0007). ASCEND: [facility] Jun 12. About [address]44 diabetic patients were randomized to aspirin or placebo. Average f/u was 7 years. The incidence of serious vascular events was 8.5% in the treatment group and 9.6% in placebo group, and incidence of bleeding was 4.1% in the treatment group and 3.2% in the placebo group. >>> In diabetics for about every 100 people treated with aspirin about 1 vascular event was averted and about one major bleed was caused. ) ASPREE: [facility] Jul 18. About 65565 people, median age 74, randomized to placebo vs 100mg aspirin. Median f/u 4.7 years. Primary endpoint of , dementia, or phyiscal disability was virtually identical (10%). All cause mortality was slightly higher in the aspirin group (5.9% vs 5.2%) which was attributab le to significan tly more cancer deaths with aspirin (3.1% vs 2.3%). No difference in CV endpoint including people with multiple risk factors. Major hemorrhage occurred significan tly more frequently with aspirin than with placebo (3.8% vs 2.8%). Active or passive immunization 821652304 Z23 Hyperlipid emia screening 929221739 Z13.220 Screening for disorder 872530314 Z13.9 Elevated blood-pressure reading without diagnosis of hypertension 682859761 R03.0 reviewed his BP today which has increased as his weight has gone uprec'd treat with lifestyle and will bring back in 3 mo for recheck Health Concerns Section Related Observation LastModified by Organization Brianna hassan LastModified Time None Recorded Concern Status LastModified by Organization Details LastModified Time None Recorded Advance Directives Directive N: info given -- - ng Payers Encounter Date Sequence Insurance Name Policy Number Policy Duron Covered Member ID Duron Member ID Guarantor Name 09/04/2016 1 [place] MEDICARE SERVICES - [facility] Bert Prieto Winnie [id number] Bert Zhou 09/04/2016 2 [employer] - PLAN F (MEDICARE SUPPLEMENT) Bert Ida Zhou [id number] Bert Zhou 03/04/2017 1 [place] MEDICARE SERVICES - [facility] Bert Prieto Winnie [id number] Bert Zhou 03/04/2017 2 [employer] - PLAN F (MEDICARE SUPPLEMENT) Bert Zhou [id number] Bert Zhou 09/02/2017 1 [place] MED[place]ARE [place] - [facility] Bert Prieto Winnie [id number] Bert Zhou 09/02/2017 2 [employer] - PLAN F (MEDICARE SUPPLEMENT) Bert Zhou [id number] Bert Zhou 02/07/2018 1 [place] MEDICARE SERVICES - [facility] Bert Prieto Winnie [id number] Bert Zhou 02/07/2018 2 [employer] - PLAN F (MEDICARE SUPPLEMENT) Bert Prieto Winnie [id number] Bert Zhou 09/05/2018 2 [employer] - PLAN F (MEDICARE SUPPLEMENT) Bert Ida Zhou [id number] Bert Zhou 09/05/2018 1 [place] MEDICARE SERVICES - [facility] Bert Zhou [id number] Bert Zhou Notes Date Note Type Note Provider Name and Address Organization Details Recorded Time 03/04/2017 text/html No further gout flares. He has quit drinking for over a year now, almost 1.5 years. He says that the gout is improved. He says that the reflux has been doing well. He avoids acidy food. No further terrible episodes in the middle of the night. He takes the omeprazole on most days. He can miss a couple of days but then he can get some GI upset and this resolves with taking one.He says that he has been walking regularly. He says that he has pain in the hip with running. He is active about 4 days weekly. he will be playing tennis soon.He goes up to [place], [place] to visit his father.He saw Dr. Garrett and had the worst hemorrhoid banded. He is using MiraLax every other day with good effect.He is hoping to get down to 230 - 235 lbs. Morgan ching [place] 03/04/2017 09:17:48 02/07/2018 text/html He says that he has been doing well.He has not had any flares of gout. He has gone almost three years without drinking. He drinks a lot of water, he says.He says that he has been getting pins and needles of his toes bilaterally which are intermittent.He skied a lot this past winter and had the same sx when he skied the symptoms were not any worse.No new footwear and no differences in different footwear.He walks 4 days weekly for three miles. He was also active during his job throughout the day prior to retiring. Morgan ching [place] 02/08/2018 12:44:07 09/05/2018 text/html Medicare Annual Wellness VisitReported bypatient.Diet and Nutrition:discussed diet improvement; not that many veggies Fracture Risk:no recent explained fracture; no sudden unexplained fractures;history of fractures;previous musculoskeletal injuries Physical Activity:exercises on a regular basis; recent increase in physical activity; good physical condition Depression Risk:never feels sad, empty, or tearful; no loss of interest in activities; no significant changes in weight; no sleep disturbances or insomnia; no agitation; no loss of energy; no feelings of worthlessness or guilt; no thoughts of suicide; no history of depression; no history of mood disorders Orientation:no disorientation to time; no disorientation to date; no disorientation to place; I forget more than I used to Concentration and Memory:no decreased concentrating ability; no memory lapses or loss; does not forget words Speech/Motor difficulties:no speech difficulties; no difficulty expressing formulated concepts; no difficulty with fine manipulative tasks; no difficulty writing/copying; no slowed reaction time; does not knock things over when trying to pick them up Hearing:no loss of hearing Vision:no vision problems Activities of Daily Living:able to bathe with limited or no assistance; able to contol urination and bowels; able to dress with limited or no assistance; able to feed self with limited or no assistance; able to get out of chair or bed with limited or no assistance; able to groom with limited or no assistance; able to toilet with limited or no assistance Instrumental Activities of Daily Living:able to do house work with limited or no assistance; able to grocery shop with limited or no assistance; able to manage medications with limited or no assistance; able to manage money with limited or no assistance; able to prepare meals with limited or no assistance; able to use the phone with limited or no assistance Falls Risk Assessment:no frequent falls while walking; no fall in the past year; no fall since last visit; no dizziness/vertigo Home Safety:no unsafe alessandra hazzards; no unsafe stairs; no unsafe gas appliances; working smoke/CO detectors; use of seatbelts; practicing 'safer sex'; no vision or hearing loss while driving; has hand bars in the bathroom/shower; good lighting in the home no cpno dizzinessno sobno palptiationsno headachessometimes gets aches and painsno black or red stoolheart burn is controlled Silver Shen MD [address] [place] [address] [facility], [place], [address], [place] [facility] [place] 09/05/2018 11:35:49
--- NOTE | 2025-02-15 13:12 | HO.ANESPROP2 ---
Documented by User: Ju Ambrose NP 02/15/25 13:13 HPI - Anesthesia Eval Consult details Narrative: 74yo M for Colonoscopy [facility] Past Medical History Medical History Gallstones Elevated PSA Environmental allergies Arthritis Asthma Hemorrhoids Neuropathy BPH (benign prostatic hyperplasia) GERD (gastroesophageal reflux disease) Venous stasis Renal calculi Chronic renal insufficiency Rosacea Family History Family history of problems with anesthesia: No Surgical History Surgical History Hx of hemorrhoidectomy History of hip surgery H/O colonoscopy History of total left hip arthroplasty Hx of tonsillectomy History of Problems with Anesthesia: No Social History Social History Are you a primary patient care assistant to a significant other at home: No Do you presently have visiting nurse or other home services: No Patient Tobacco Use Status: Never used Tobacco Use of substances other than those prescribed or required for medical reasons: No Are you DNR?: No Advance Directives: No Advance Directives Information Provided: Yes Meds Allergies Allergy/AdvReac Type Severity Reaction Status Date / Time No Known Allergies Allergy Verified 02/16/25 10:23 Home Medications ?Medication ?Instructions ?Recorded ?Confirmed ?Last Taken ?Type doxycycline hyclate 100 mg capsule 100 mg PO BID 05/10/24 02/16/25 Unknown History omeprazole magnesium 20 mg 20 mg PO DAILY PRN Acid Reflux 05/10/24 02/16/25 Unknown History tablet,delayed release (Prilosec OTC) sildenafil 50 mg tablet 50 mg PO Q3D PRN Erectile 05/10/24 02/16/25 Unknown History Dysfunction ketoconazole 2 % topical cream 1 appl topical BID PRN Skin 02/14/25 02/16/25 Unknown History Irritation Exam Height,Weight and Vital Signs: Height 6 ft 4 in Weight 114.305 kg Assessment and Plan Assessment Anesthesia Assessment: Chart Reviewed Final Anesthetic Review Family History of Problems with Anesthesia: No History of Problems with Anesthesia: No Documented by User: Krista Rivera MD 02/16/25 11:31 PMFSH Past Medical History Medical History Gallstones Elevated PSA Environmental allergies Arthritis Asthma Hemorrhoids Neuropathy BPH (benign prostatic hyperplasia) GERD (gastroesophageal reflux disease) Venous stasis Renal calculi Chronic renal insufficiency Rosacea Surgical History Surgical History Hx of hemorrhoidectomy History of hip surgery H/O colonoscopy History of total left hip arthroplasty Hx of tonsillectomy Social History Social History Are you a primary patient care assistant to a significant other at home: No Do you presently have visiting nurse or other home services: No Patient Tobacco Use Status: Never used Tobacco Use of substances other than those prescribed or required for medical reasons: No Are you DNR?: No Advance Directives: No Advance Directives Information Provided: Yes Meds Allergies Allergy/AdvReac Type Severity Reaction Status Date / Time No Known Allergies Allergy Verified 02/16/25 10:23 Home Medications ?Medication ?Instructions ?Recorded ?Confirmed ?Last Taken ?Type doxycycline hyclate 100 mg capsule 100 mg PO BID 05/10/24 02/16/25 Unknown History omeprazole magnesium 20 mg 20 mg PO DAILY PRN Acid Reflux 05/10/24 02/16/25 Unknown History tablet,delayed release (Prilosec OTC) sildenafil 50 mg tablet 50 mg PO Q3D PRN Erectile 05/10/24 02/16/25 Unknown History Dysfunction ketoconazole 2 % topical cream 1 appl topical BID PRN Skin 02/14/25 02/16/25 Unknown History Irritation Exam Airway Mallampati Class: III (crowns laterally) TM Dist: >3cm Neck ROM: Full Heart: rrr Lungs: cta Assessment and Plan Assessment Anesthesia Assessment: Anesthesia Plan Discussed Final Anesthetic Review NPO: Yes ASA Class: II Final Preanesthetic Review: No Changes in Pt Med Stat, Meds/Allgs Chart Reviewed and Consent Obtained/Reviewed Patient Risk: Low Procedure Risk: Low Anesthetic Plan Anesthetic Plan: MAC: Disposition: Standard PACU
[2025-02-16 10:24] VITALS: BMI 30.1
[2025-02-16 10:39] VITALS: BP 144/93; PULSE 73; RESP 15; TEMP 36.3; O2SAT 99
[2025-02-16] MEDS: Lactated Ringers 1,000 ML 100 ML IVCONT (10:49)
[2025-02-16 12:38] VITALS: BP 128/80; PULSE 78; RESP 16; TEMP 36.2; O2SAT 95
--- NOTE | 2025-02-16 12:39 | P.BOP_ITS ---
Brief Operative Note Date of Service: 02/16/25 Pre-op diagnosis: Screening Post-op diagnosis: other (Colon polyps) Procedure: Colonoscopy to the cecum and TI with cold snare polypectomy at 60cm, and bx/removal of polyp in ascending colon Surgeon: Francesco Caceres MD Anesthesia: MAC Was an Buttonhole Maker Hand used for this Procedure?: No Estimated blood loss (mL): 2.0 Pathology: other (A. Ascending colon polyp B. Polyp at 60cm) Condition: stable Disposition: PACU
[2025-02-16 12:45] VITALS: BP 131/87; PULSE 82; RESP 16; TEMP 36.1; O2SAT 97
--- NOTE | 2025-02-16 16:21 | OP_ITS ---
DATE OF SERVICE: 02/16/2025 SURGEON: Francesco Caceres MD INDICATIONS: The patient presents for evaluation of colorectal cancer screening. Full consent has been obtained from him for this, including risks of bleeding and perforation. PREOPERATIVE DIAGNOSIS: Colorectal cancer screening. POSTOPERATIVE DIAGNOSIS: PROCEDURE PERFORMED: Colonoscopy to the cecum and terminal ileum with cold snare polypectomy and biopsy and removal of polyp. ESTIMATED BLOOD LOSS: COMPLICATIONS: ANESTHESIA: Monitored anesthesia care. ASSISTANTS: SPECIMENS: POSTOPERATIVE DIAGNOSES: Colorectal cancer screening, small colon polyps, diverticulosis, and internal hemorrhoids. DESCRIPTION OF PROCEDURE: The patient was placed in the left lateral decubitus position. The digital rectal exam revealed some external hemorrhoids. The Olympus video pediatric colonoscope was then entered into the rectum and advanced easily to the cecum. Once in the cecum, I did identify normal-appearing cecal pouch with appendiceal orifice and a normal-appearing ileocecal valve. The terminal ileum was cannulated and appeared normal. The scope was withdrawn back in the colon. The entire cecum and ileocecal valve appeared normal. The scope was slowly withdrawn assessing all mucosal surfaces carefully. Preparation was excellent. In the ascending colon, was a flat, approximately 3 mm polyp, which was biopsied and completely removed with the cold biopsy forceps. At 60 cm, was an approximately 6 to 8 mm polyp, which was removed by cold snare polypectomy and recovered by suction. A remaining piece of that was removed by the biopsy forceps and placed in the same container. I did not visualize any other polyps, colitis, nor angiodysplasia. There was a mild amount of sigmoid diverticulosis. In the rectum, scope was retroflexed, visualizing internal hemorrhoids, but no other pathology. The rectal mucosa appeared normal. Scope was straightened and withdrawn from the patient. He tolerated the procedure well and was returned to the recovery area in stable condition. IMPRESSION: 1. Colon polyps. 2. Diverticulosis. 3. Internal and external hemorrhoids. PLAN: The results of the biopsy will be checked. Given these relatively minimal findings and his age, I do not think we need any further screening colonoscopies in the future. He would otherwise see me on a p.r.n. basis. He was advised not to use any aspirin and NSAIDs for 1 week. MD IBRAHIMA Aguilera/HU / [id number]
== END 2025-02-16 13:02 | disposition home or self-care (01) ==
PROVIDERS: PCP Internal Medicine; Visit Provider Internal Medicine
PROC: 0DJD8ZZ Inspection of Lower Intestinal Tract, Via Natural or Artificial Opening Endoscopic (ICD-10-PCS; CPT 45378; principal; 2025-02-16 11:30)
DX: Z12.11 Encounter for screening for malignant neoplasm of colon (principal); D12.2 Benign neoplasm of ascending colon; D12.4 Benign neoplasm of descending colon; K57.30 Diverticulosis of large intestine without perforation or abscess without bleeding; K64.8 Other hemorrhoids; K64.4 Residual hemorrhoidal skin tags; L71.9 Rosacea, unspecified; Z79.899 Other long term (current) drug therapy; Z87.442 Personal history of urinary calculi; Z98.890 Other specified postprocedural states
CPT/HCPCS: 45385; 45380; 88305; J2003; J2704

== ENCOUNTER 2025-02-19 13:16 | Outpatient (AMB) | payer MEDICARE, SELFPAY ==
--- NOTE | 2025-02-19 13:20 | MHC.PC.OV ---
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 Accompanied by: Self / Same As Patient Allergies No Known Allergies Allergy (Verified 02/19/25 13:46) Medication List - Last Reconciled 02/19/25 by Harjinder Rosa MD doxycycline hyclate 100 mg PO BID ketoconazole 2% 1 appl topical BID PRN omeprazole magnesium (Prilosec OTC) 20 mg PO DAILY PRN sildenafil 50 mg PO Q3D PRN Tobacco use date assessed: 02/19/25 Fall risk assessment: No Falls in past year Last assessed Fall Risk: 02/19/25 Dental Screening Dental Screen Date: 02/19/25 Did you have a dental visit in the last 12 months?: Yes Did you have a dental problem in the last 6 months where you did not have access to dental care?: No Was dental information given to patient?: Patient has dentist HPI Routine HPI Details 74-year-old male presents to the office to discuss his chronic medical conditions. Patient is looking for a refill on sildenafil. He uses it for erectile dysfunction. Patient recently had a colonoscopy and is awaiting the results on the biopsy. He is able to function and do activities of daily living. [facility] Medical History (Updated 02/19/25 @ 13:49 by Harjinder Rosa MD) Erectile dysfunction Essential hypertension Gallstones Elevated PSA Environmental allergies Arthritis Asthma Hemorrhoids Neuropathy BPH (benign prostatic hyperplasia) GERD (gastroesophageal reflux disease) Venous stasis Renal calculi Chronic renal insufficiency Rosacea Surgical History Hx of hemorrhoidectomy History of hip surgery H/O colonoscopy (02/16/25) History of total left hip arthroplasty Hx of tonsillectomy Family History Mother Alzheimer disease Father Heart disease Diabetes Afib CHF (congestive heart failure) Social History Housing: House Are you a primary direct care counselor to a significant other at home: No Do you presently have visiting nurse or other home services: No Alcohol intake: never Patient Tobacco Use Status: Never used Tobacco service: Yes Current occupational status: retired Cognitive needs: No Hearing needs: No Vision needs: Yes (Reading) Questionnaire PHQ-9 Over the last 2 weeks, how often have you been bothered by any of the following problems? 1. Little interest or pleasure in doing things: not at all 2. Feeling down, depressed, or hopeless: not at all 3. Trouble falling or staying asleep, or sleeping too much: not at all 4. Feeling tired or having little energy: not at all 5. Poor appetite or overeating: not at all 6. Feeling bad about yourself - or that you are a failure or have let yourself or your family down: not at all 7. Trouble concentrating on things, such as reading the newspaper or watching television: not at all 8. Moving or speaking so slowly that other people could have noticed. Or the opposite - being so fidgety or restless that you have been moving around a lot more than usual: not at all 9. Thoughts that you would be better off or of hurting yourself in some way: not at all Total score: 0 Depression Screening Interpretation: Negative Depression Screening Done: Yes Source: Developed by Drs. Francesco Gan, Mildred Gates, Yanick Hannon and colleagues, with an educational harpal from [employer]. Thrive Questionnaire Date Thrive assessed: 02/19/25 I am a: Patient What is your living situation today?: I have a steady place to live Within the past 12 months, did the food you bought not last and you didn't have the money to get more?: Never true Within the past 12 months, did you worry whether your food would run out before you got money to buy more?: Never true Do you have trouble paying for medicines?: No Do you have trouble getting transportation to medical appointments?: No Do you have trouble paying your heating and electricity bill?: No Do you have trouble taking care of your child, family member or friend?: No Do you have trouble with day-to-day activities such as bathing, preparing meals, shopping, managing finances, etc.?: No Are you currently unemployed and looking for a job?: No Are you interested in more education?: No Please select the resources that you would like help with: None Currently or been in a relationship where the following occur: No concerns reported THRIVE Score: 0 AUDIT C Alcohol Use Questionnaire (AUDIT-C) 1. How often do you have a drink containing alcohol?: Never Total Score: 0 MADISON-7 AMB Questionnaire MADISON-7 Date MADISON - 7 assessed: 02/19/25 Feeling nervous, anxious, or on edge: 0 = Not at all Not being able to stop or control worryin = Not at all Worrying too much about different things: 0 = Not at all Trouble relaxin = Not at all Being so restless that it is hard to sit still: 0 = Not at all Becoming easily annoyed or irritable: 0 = Not at all Feeling afraid as if something awful might happen: 0 = Not at all Total MADISON-7 score (0-4 normal; 5-9 mild; 10-14 moderate; 15-21 severe): 0 Source: Developed by Drs. Francesco Gan, Mildred Gates, Yanick Hannon and colleagues, with an educational harpal from [employer]. Physical exam (Primary Care) Care Plan Goal for BP management: Blood pressure is elevated. Medications started. Tobacco/Smoking Status: Tobacco use Status Tobacco use date assessed 02/19/25 02/19/25 13:25 Patient Tobacco Use Status Never used Tobacco 02/19/25 13:25 Are you ready to quit: No PHQ-9: PHQ-9 Score PHQ-9: Total score 0 02/19/25 13:25 Depression Screening Interpretation: Negative Thrive Assessment: Date of Thrive Assessment Date Thrive assessed 02/19/25 02/19/25 13:25 Currently or been in a relationship where the following occur: No concerns reported Advance Care Planning discussion: Exists, not on file Date of discussion: 02/19/25 Forms completed: Health Care Proxy and MOLST Time spent: 1-15 minutes, not on file Actual minutes spent: 5 Const General: cooperative and healthy appearing Nutritional Appearance: well nourished Orientation/consciousness: patient oriented x3 Limitations: no limitations HENMT Head: Yes normal to inspection Eyes General: appearance normal, both eyes and all related structures Neck Neck: Yes normal visual inspection Chest Chest palpation & inspection: normal palpation of entire chest wall Resp Effort & Inspection: normal respiratory effort Neuro General: patient oriented x3 Coding Level of Care Code New Pt Level 4 (33074) Complex EM visit Add On G2211 Diagnoses Essential hypertension I10 Erectile dysfunction N52.9 BPH (benign prostatic hyperplasia) N40.0 Additional Codes Vital Signs *Quality* - Advance Care Planning discussion: Exists, not on file ([id number]) Vital Signs *Quality* - Time spent: 1-15 minutes, not on file ([id number]) Assessment & Plan Assessment & Plan (1) Essential hypertension: Code(s): I10 - Essential (primary) hypertension Category: Medical Plan: During this visit, patient was found to have elevated blood pressure. He had a colonoscopy last week in the hospital and blood pressures recorded were in range. Patient gives history of high blood pressure in the past. Lisinopril 10 mg has been started. We will recheck the blood pressure in 1 month. (2) Erectile dysfunction: Code(s): N52.9 - Male erectile dysfunction, unspecified Category: Medical Plan: Continue Viagra at same dosage. (3) BPH (benign prostatic hyperplasia): Code(s): N40.0 - Benign prostatic hyperplasia without lower urinary tract symptoms Category: Medical Plan: An appointment for the urologist will be made.
[2025-02-19 13:31] VITALS: BP 170/110; PULSE 87; RESP 16; TEMP 36.6; O2SAT 97
[2025-02-19 13:44] VITALS: BP 160/80
--- OUTSIDE RECORDS SUMMARY | 2025-02-19 14:40 | XMS_ITS ---
Author Organization [facility] Address [address] [place] [address] Care Team Providers Care Military Technology Specialist Name Role Phone Harvey Ramos MD Primary Care Provider Francesco Woodall [phone] REASON FOR VISIT r/s Encounters Encounter Location Date Provider Diagnosis [facility] [address] [place] [address] 11/03/2024 Francesco Caceres Plan Of Treatment No Information Progress Notes * MARTHA PALAFOXDOB:1950 (74 yo M)Acc No.[id number]:11/03/2024 Patient:?MARTHA PALAFOX :1950???Age:74 Y???Sex:Male Address:[address] [place] [address] , [place], [address] * true * Date:? Generated for Duane sarmiento/Jossie/eTransmitting on:?02/19/2025 02:40 PM EDT
--- OUTSIDE RECORDS SUMMARY | 2025-02-19 14:41 | XMS_ITS | Data Portability ---
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 Plan of Treatment Reminders Order Date Submit Date Provider Last Modified By Organization Details Last Modified Time Details Appointments None recorded. Lab hepatitis C virus Ab, serum 2017 018 [facility] ([place] [facility]), [address], [address], 9 10:29:04 PSA, serum or plasma 2017 018 [facility] ([place] [facility]), [address], [address], 9 10:29:04 lipid panel, blood 2017 018 [facility] ([place] [facility]), [address] [place] [place], [address], 8 10:06:17 CBC w/ diff 2017 018 [facility] ([place] [facility]), [address], [place], [address], 8 10:06:16 vitamin B12, serum 2017 018 [facility] ([place] [facility]), [address], [place], [address], 8 10:06:17 BMP, serum or plasma 2017 018 dcruse [facility] ([place] [facility]), [address], [place], [address], 8 10:06:17 magnesium, serum or plasma 2017 018 dcruse [facility] ([place] [facility]), [address], [place], [address], 8 10:06:17 HbA1c (hemoglobi n A1c), blood 2017 018 [facility] ([place] [facility] [address], [place], [address], 8 19:06:45 glucose, QN [mass/volu me], serum or plasma 2017 018 cjose [facility] ([place] [facility]), [address], [place], [address], 8 08:24:37 uric acid, serum or plasma 2016 017 [facility] ([place] [facility]), [address], [place], [address], 8 14:22:42 ALT (alanine aminotrans ferase), serum or plasma 2016 017 [facility] ([place] [facility]), [address], [place], [address], 8 14:22:43 lipid panel, serum - Fasting for 12 hours. Water and medication s ONLY. 2016 017 [facility] ([place] [facility]), [address], [place], [address], 8 14:22:44 HbA1c (hemoglobi n A1c), blood 2016 017 [facility] ([place] [facility]), [address], [place], [address], 8 16:19:52 glucose, fasting, QN, serum or plasma 2016 017 [facility] ([place] [facility]), [address], [place], [address], 8 09:32:40 HbA1c (hemoglobi n A1c), blood 2015 016 [facility] ([place] [facility] [address], [place], [address], 7 17:44:40 glucose, fasting, QN, serum or plasma 2015 016 [facility] [place] [facility] [address], [place], [address], 7 09:14:51 ALT (alanine aminotrans ferase), serum or plasma 2015 016 [facility] ([place] [facility] [address], [place], [address], 7 14:46:49 lipid panel, serum - Fasting for 12 hours. Water and medication s ONLY. 2015 016 [facility] ([place] [facility]), [address], [place], [address], 7 14:46:50 Referral neurologis t referral - paresthesi as and mild hypesthesi a of his toes bilaterall y [address] [facility], [address] [place], [address], 8 07:06:34 Procedures None recorded. Surgeries None recorded. Imaging None recorded. Medication Orders omeprazole 20 mg capsule,de layed release 2017 018 [facility], [address] [place], [address], 8 11:29:47 ProAir HFA 90 mcg/actuat ion aerosol inhaler 2017 018 [facility], [address] [place], [address], 8 11:29:47 omeprazole 20 mg capsule,de layed release 2016 017 [facility], [address] [place] [address], [address], 7 11:40:08 omeprazole 20 mg capsule,de layed release 2016 017 [facility], [address] [place] [address], [address], 7 09:16:34 Patient TargetsNo targets recorded. Patient Instructions Encounter Date Encounter Id Patient Instructions Last Modified By Organization Details Last Modified Time 09/04/2016 [id number] advised to lose weight n[place] Not available 09/04/2016 19:52:48 03/04/2017 [id number] advised to lose weight n[place] Not available 03/04/2017 09:16:33 We discussed the above issues for >30 mins. ngr[place] Not available 03/04/2017 09:17:21 09/02/2017 [id number] advised to lose weight [place] Not available 09/02/2017 11:40:06 We discussed the above issues for >1/2 of the 45 min visit. ngrumbach Not available 09/02/2017 13:00:50 02/07/2018 [id number] advised to lose weight ngr[place]ach Not available 02/07/2018 11:11:29 We discussed the above issues for >1/2 of the 30 min appt. ricci Not available 02/08/2018 10:38:35 09/05/2018 [id number] SM: HEALTHY BEHA VIORS COUNSELLING ard Not [...] time during adulthood if you were born [phone].Up to date Next due: Ordered today 12)Immunizations: [...] age or older (1 year separate from [id number]). PPSV23 is also recommended as a one [...] [facility] [address] [place], [address], 08/18/2016 09:26:03 08/28/20 16 08/28/2016 gluco se, fasti ng, QN, serum or plasm a glucose 102 mg/dL 67-99 high Not Available [facility] ([place] [facility]) [address], [address], 08/28/2016 11:25:59 08/28/20 16 08/28/2016 lipid panel , serum cholesterol level 171 mg/dL 110-19 9 Adult Nurys stero l Inter preta tion: Valentin able: <200 Borde rline :200- 239 High >239 Not Available [facility] ([place] [facility]) [address], [address], 08/28/2016 11:25:59 08/28/20 16 08/28/2016 lipid panel , serum triglyceride s 106 mg/dL 40-150 Adult Trigl yceri de Inter preta tion: Valentin able <150 Borde rline 150-1 99 High >199 Not Available [facility] ([place] [facility]) [address], [address], 08/28/2016 11:25:59 08/28/20 16 08/28/2016 lipid panel , serum HDL 43 mg/dL 40-70 HDL Inter preta tion: Low Less than 40 Valentin able great er than 40 Not Available [facility] ([place] [facility]) [address], [address], 08/28/2016 11:25:59 08/28/20 16 08/28/2016 lipid panel , serum LDL 107 mg/dL 70-129 Adult LDL Inter preta tion: Valentin able <130 Borde rline 130-1 59 High >159 An Accur ate calcu lated LDL is obtai dexter when the patie nt is fasti ng 12 hours . Not Available [facility] ([place] [facility]) [address], [address], 08/28/2016 11:25:59 08/28/20 16 08/28/2016 lipid panel , serum chol HDL ratio 4.0 2.0-5. 0 Not Available [facility] ([place] [facility]) 180 [facility] 2, [place], [address], 08/28/2016 11:25:59 08/28/20 16 08/28/2016 lipid panel , serum hours fasting 12 hours Not Available [facility] ([place] [facility]) 180 [facility] [address], [place], [address], 08/28/2016 11:25:59 08/28/20 16 08/28/2016 ALT (rosalba ine amino trans feras e), serum or plasm a ALT 28 IU/L 6-45 Not Available [facility] ([place] [facility]) 180 [facility] [address], [place], [address], 08/28/2016 11:26:00 08/28/20 16 08/28/2016 HbA1c (hemo globi n A1c), blood A1C 5.1 % 4.3-5. 8 Not Available [facility] ([place] [facility]) 180 [facility] 2, [place], [address], 08/28/2016 17:47:10 01/09/20 17 01/08/2017 urina lysis , dipst ick color urine YELLOW yellow Not Available [facility] ([place] [facility]) 180 [facility] 2, [place], [address], 01/08/2017 18:44:22 01/09/20 17 01/08/2017 urina lysis , dipst ick appearance urine CLEAR slight ly cloudy Not Available [facility] ([place] [facility]) 180 [facility] [address], [place], [address], 01/08/2017 18:44:22 01/09/20 17 01/08/2017 urina lysis , dipst ick glucose urine NEGATI VE negati ve Not Available [facility] ([place] [facility]) 180 [facility], [place], [address], 01/08/2017 18:44:22 01/09/20 17 01/08/2017 urina lysis , dipst ick bilirubin urine NEGATI VE negati ve Not Available [facility] ([place] [facility]) [address], [place], [address], 01/08/2017 18:44:22 01/09/20 17 01/08/2017 urina lysis , dipst ick ketone urine NEGATI VE negati ve Not Available [facility] ([place] [facility]) [address], [place], [address], 01/08/2017 18:44:22 01/09/20 17 01/08/2017 urina lysis , dipst ick specific gravity urine 1.021 1.010- 1.030 Not Available [facility] ([place] [facility]) [address], [place], [address], 01/08/2017 18:44:22 01/09/20 17 01/08/2017 urina lysis , dipst ick blood urine NEGATI VE negati ve Not Available [facility] ([place] [facility]) [address], [place], [address], 01/08/2017 18:44:22 01/09/20 17 01/08/2017 urina lysis , dipst ick pH urine 5.0 5.0-8. 0 Not Available [facility] ([place] [facility]) [address], [place], [address], 01/08/2017 18:44:22 01/09/20 17 01/08/2017 urina lysis , dipst ick protein urine NEGATI VE mg/dL <10 Not Available [facility] ([place] [facility]) [address], [place], [address], 01/08/2017 18:44:22 01/09/20 17 01/08/2017 urina lysis , dipst ick urobilinogen urine NEGATI VE negati ve Not Available [facility] ([place] [facility]) [address] [address], [place], [address], 01/08/2017 18:44:22 01/09/20 17 01/08/2017 urina lysis , dipst ick nitrite level NEGATI VE negati ve Not Available [facility] ([place] [facility]) [address] [address], [place], [address], 01/08/2017 18:44:22 01/09/20 17 01/08/2017 urina lysis , dipst ick leukocyte est urine NEGATI VE negati ve Not Available [facility] ([place] [facility]) [address] [address], [place], [address], 01/08/2017 18:44:22 01/09/20 17 01/08/2017 urina lysis , compl ete red blood cells urine 3 /hpf 0-3 Not Available [facility] ([place] [facility]) [address], [address], 01/08/2017 19:03:16 01/09/20 17 01/08/2017 urina lysis , compl ete white blood cells urine 1 /hpf 0-4 Not Available [facility] ([place] [facility]) [address] [address], [place], [address], 01/08/2017 19:03:16 01/09/20 17 01/08/2017 urina lysis , compl ete mucous urine PRESEN T absent abnormal Not Available [facility] ([place] [facility]) [address] [address], [place], [address], 01/08/2017 19:03:16 01/09/20 17 01/08/2017 urina lysis , compl ete squamous epith cells urine FEW /lpf Not Available [facility] ([place] [facility]) [address] [address], [place], [address], 01/08/2017 19:03:16 01/09/20 17 01/08/2017 cultu re, urine urine cult SEE NOTE TEXT Sourc e: Urine Colle cted: 01/08 13:38 Site: CLEAN CATCH Recei jacqueline : 01/08 21:15 Urine Cult FINAL 01/09 15:43 No growt h Not Available [facility] ([place] [facility]) [address], [address], 01/09/2017 15:44:48 02/24/20 17 02/23/2017 ALT (rosalba ine amino trans feras e), serum or plasm a ALT 19 IU/L 6-45 Not Available [facility] ([place] [facility]) [address] [address], [place], [address], 02/23/2017 14:46:49 02/24/20 17 02/23/2017 lipid panel , serum cholesterol level 155 mg/dL 110-19 9 Adult Nurys stero l Inter preta tion: Valentin able: <200 Borde rline :200- 239 High >239 Not Available [facility] ([place] [facility]) [address], [address], 02/23/2017 14:46:50 02/24/20 17 02/23/2017 lipid panel , serum triglyceride s 160 mg/dL 40-150 high Adult Trigl yceri de Inter preta tion: Valentin able <150 Borde rline 150-1 99 High >199 Not Available [facility] ([place] [facility]) [address], [address], 02/23/2017 14:46:50 02/24/20 17 02/23/2017 lipid panel , serum HDL 44 mg/dL 40-70 HDL Inter preta tion: Low Less than 40 Valentin able great er than 40 Not Available [facility] ([place] [facility]) [address], [address], 02/23/2017 14:46:50 02/24/20 17 02/23/2017 lipid panel , serum LDL 79 mg/dL 70-129 Adult LDL Inter preta tion: Valentin able <130 Borde rline 130-1 59 High >159 An Accur ate calcu lated LDL is obtai dexter when the patie nt is fasti ng 12 hours . Not Available [facility] ([place] [facility]) [address], [address], 02/23/2017 14:46:50 02/24/20 17 02/23/2017 lipid panel , serum chol HDL ratio 3.5 2.0-5. 0 Not Available [facility] ([place] [facility]) [address], [address], 02/23/2017 14:46:50 02/24/20 17 02/23/2017 lipid panel , serum hours fasting 12 hours Not Available [facility] ([place] [facility]) [address], [address], 02/23/2017 14:46:50 02/24/20 17 02/23/2017 gluco se, fasti ng, QN, serum or plasm a glucose 87 mg/dL 67-99 Not Available [facility] ([place] [facility]) [address], [address], 02/23/2017 14:46:51 02/24/20 17 02/23/2017 HbA1c (hemo globi n A1c), blood A1C 5.4 % 4.3-5. 8 Not Available [facility] ([place] [facility]) [address], [address], 02/23/2017 17:44:40 07/05/20 17 07/05/2017 PSA, serum or plasm a PSA diagnostic 3.987 normal Not Available [facility] [address] [place], [address], 07/06/2017 09:16:36 01/25/20 18 01/24/2018 uric acid, serum or plasm a uric acid 7.0 mg/dL 3.5-8. 5 Not Available [facility] ([place] [facility]) [address] [place], [address], 01/24/2018 14:22:42 01/25/20 18 01/24/2018 ALT (rosalba ine amino trans feras e), serum or plasm a ALT 30 IU/L 6-45 Not Available [facility] ([place] [facility]) [address], [address], 01/24/2018 14:22:43 01/25/20 18 01/24/2018 lipid panel , serum cholesterol level 155 mg/dL 110-19 9 Adult Nurys stero l Inter preta tion: Valentin able: <200 Borde rline :200- 239 High >239 Not Available [facility] ([place] [facility]) [address], [address], 01/24/2018 14:22:44 01/25/20 18 01/24/2018 lipid panel , serum triglyceride s 137 mg/dL 40-150 Adult Trigl yceri de Inter preta tion: Valentin able <150 Borde rline 150-1 99 High >199 Not Available [facility] ([place] [facility]) [address], [address], 01/24/2018 14:22:44 01/25/20 18 01/24/2018 lipid panel , serum HDL 43 mg/dL 40-70 HDL Inter preta tion: Low Less than 40 Valentin able great er than 40 Not Available [facility] ([place] [facility]) [address], [address], 01/24/2018 14:22:44 01/25/20 18 01/24/2018 lipid panel , serum LDL 85 mg/dL 70-129 Adult LDL Inter preta tion: Valentin able <130 Borde rline 130-1 59 High >159 An Accur ate calcu lated LDL is obtai dexter when the patie nt is fasti ng 12 hours . Not Available [facility] ([place] [facility]) [address], [address], 01/24/2018 14:22:44 01/25/20 18 01/24/2018 lipid panel , serum chol HDL ratio 3.6 2.0-5. 0 Not Available [facility] ([place] [facility]) 180 [facility] [address], [place], [address], 01/24/2018 14:22:44 01/25/20 18 01/24/2018 lipid panel , serum hours fasting 12 hours Not Available [facility] ([place] [facility]) 180 [facility] [address], [place], [address], 01/24/2018 14:22:44 01/25/20 18 01/24/2018 gluco se, fasti ng, QN, serum or plasm a glucose 106 mg/dL 67-99 high Not Available [facility] ([place] [facility]) [address] [address], [place], [address], 01/24/2018 14:22:45 01/25/20 18 01/24/2018 HbA1c (hemo globi n A1c), blood A1C 5.6 % 4.3-5. 8 Not Available [facility] ([place] [facility]) [address] [address], [place], [address], 01/24/2018 16:19:52 08/30/20 18 08/30/2018 gluco se, QN [mass /volu me], serum or plasm a glucose 105 mg/dL 67-99 high Not Available [facility] ([place] [facility]) [address] [facility] [address], [place], [address], 08/30/2018 14:04:40 08/30/20 18 08/30/2018 HbA1c (hemo globi n A1c), blood A1C 5.5 % 4.3-5. 6 Not Available [facility] ([place] [facility]) [address] [facility] [address], [place], [address], 08/30/2018 19:06:45 Result Notes None recorded. Problems Name Problem SNOMED Code Status Onset Date Resolution Date Notes Provider Name and Address Organization Details Recorded Time Mixed hyperlip idemia 605087121 Completed 09/05/2018 Silver Shen MD [address] [place], [address], [place] 8 11:07:56 Gastroes ophageal reflux disease 717523007 Active Morgan ching, [place] 6 19:48:37 Eruption 471714002 Completed 04/11/2009 Morgan Barton null, [place] 6 19:48:37 Constipa tion 65752251 Completed 200709/30/2011 Morgan Barton [place], [place] 6 19:48:37 Gout 22246121 Active Morgan ching, [place] 6 19:52:48 Overweig ht 311970627 Completed 09/05/2018 Silver Shen MD [address] [place], [address], [place] 8 11:06:41 Impacted cerumen 14776573 Completed 12/25/2008 Morgan ching, [place] 6 19:48:37 Acute pharyngi tis 983949491 Completed 200512/25/2008 Morgan Barton null, [place] 6 19:48:37 Myalgia/ myositis - multiple 684351430 Completed 200505/21/2011 Morgan Barton [place], [place] 6 19:48:37 Vitamin D deficien cy 76068427 Active Morgan Barton [place], [place] 6 19:48:37 Pure hypercho lesterol emia 470718758 Completed 200305/21/2011 Morgan Barton [place], [place] 6 19:48:37 Hemorrha ge of rectum and anus 052067411 Completed 05/21/2011 Morgan Barton [place], [place] 6 19:48:37 Renal function tests outside referenc e range 482573027 Completed 05/21/2011 Morgan ching, [place] 6 19:48:37 Impaired fasting glycemia 895870735 Active improved Morgan ching, [place] 6 19:52:48 Conjunct ivitis 3556075 Completed 04/11/2009 Morgan ching, [place] 6 19:48:37 Asthma 552749611 Active mild intermit tent Morganluis [place] null, [place] 6 19:52:48 External hemorrho ids 56181754 Active saw Dr. Garrett occasion al Silver Shen MD 1 [facility] [place], [address], [place] 8 11:07:32 Allergy Active Morgan ching, [place] 19:52:48 Hemorrho ids 48184306 Completed 200309/30/2011 Morganluis ching, [place] 6 19:48:37 Kidney stone 55095068 Active Dr. Yanna ching, [place] 6 19:52:48 Constipa tion 20895471 Active Morgan ching, [place] 6 19:48:37 Ankle edema 18553536 Active Morgan ching, [place] 6 19:52:48 Closed fracture of hip 128891461 Active 11/02 with ongoing pain as of 07/05 and followin g with ortho takes prn lisail Silver Shen MD [address] [facility] [place], [address], [place] 8 11:04:32 Lower urinary tract symptoms due to benign prostati c hypertro phy 90322684090 101 Active Morgan ching, [place] 6 19:52:48 Gastroes ophageal reflux disease without esophagi tis 823124572 Completed 201609/05/2018 Silver Shen MD 1 [facility] [place], [address], [place] 8 11:07:04 Paresthe raj of foot 092136662 Active 2017 EMG 7/2 abnormal emg showing 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 Procedures Surgical History Date Name Laterality Status Provider Name and Address Organization Details Recorded Time 09/05/20 18 Fall Risk Assessment completed Hakeem Lopez [place] 09/05/2018 10:49:50 02/08/20 18 Fall Risk Assessment completed Lina Rojas [place] 02/07/2018 10:31:44 09/02/20 17 Fall Risk Assessment completed Lina Rojas [place] 09/02/2017 10:55:05 03/04/20 17 Fall Risk Assessment completed Lina Rojas [place] 03/04/2017 08:31:17 09/04/20 16 Fall Risk Assessment completed Lina Rojas [place] 09/04/2016 10:48:07 03/09/20 16 Fall Risk Assessment completed Lina Rojas [place] 03/09/2016 10:39:12 10/17/20 15 Fall Risk Assessment completed Renetta Cisneros [place] 10/17/2015 09:28:30 06/28/20 15 Fall Risk Assessment completed Lina Rojas [place] 06/28/2015 09:04:07 02/09/20 15 Fall Risk Assessment completed L[place] Rojas [place] 02/08/2015 09:05:02 10/05/20 14 Fall Risk Assessment completed Lina Rojas [place] 10/05/2014 09:31:55 06/25/20 14 Depression Screen (PHQ-2) completed Aziza oRse [place] 06/25/2014 13:55:49 03/15/20 14 Fall Risk Assessment completed Lina Rojas [place] 03/15/2014 10:29:07 03/15/20 14 Depression Screen (PHQ-2) completed Lina Rojas [place] 03/15/2014 10:29:07 10/05/20 13 Fall Risk Assessment completed Lina Rojas [place] 10/05/2013 08:58:40 10/05/20 13 Depression Screen (PHQ-2) completed Lina Rojas [place] 10/05/2013 08:58:40 01/27/20 13 Depression Screen (PHQ-2) completed Lina Rojas [place] 01/26/2013 10:20:23 09/29/20 12 Depression Screen (PHQ-2) completed Lina Rojas [place] 09/29/2012 10:58:08 Total hip arthroplasty completed Morgan Barton [place] 03/04/2017 09:03:44 Tonsillectomy completed Not Available [facility] [...] Updated DateTime 6 33.1 kg/m2 88 /min 035071. 84969 g 98 % 98 % 187.96 cm 12 /min 122 mm[Hg] 80 mm[Hg] Lina Rojas [place] 6 10:48:07 Date Recorded Body weight Body height Body mass index (BMI) Oxygen saturation Oxygen saturation in Arterial blood by Pulse oximetry Heart rate Respiratory rate Systolic blood pressure Diastolic blood pressure Provider Name and Address Organization Details Last Updated DateTime 7 669992. 24 g 187.96 cm 33 kg/m2 96 % 96 % 77 /min 14 /min 120 mm[Hg] 72 mm[Hg] Lina Rojas [place] 7 08:30:31 Date Recorded Body weight Body mass index (BMI) Body height Heart rate Respiratory rate Oxygen saturation Oxygen saturation in Arterial blood by Pulse oximetry Systolic blood pressure Diastolic blood pressure Provider Name and Address Organization Details Last Updated DateTime 7 010151. 83 g 33.1 kg/m2 187.96 cm 77 /min 12 /min 98 % 98 % 122 mm[Hg] 78 mm[Hg] Lina Rojas [place] 7 10:54:23 Date Recorded Body height Body mass index (BMI) Body weight Heart rate Respiratory rate Oxygen saturation Oxygen saturation in Arterial blood by Pulse oximetry Systolic blood pressure Diastolic blood pressure Provider Name and Address Organization Details Last Updated DateTime 8 187.96 cm 34 kg/m2 543050. 98 g 78 /min 12 /min 97 % 97 % 122 mm[Hg] 70 mm[Hg] Lina Rojas [place] 8 10:31:00 Date Recorded Body height Body mass index (BMI) Body weight Oxygen saturation Oxygen saturation in Arterial blood by Pulse oximetry Heart rate Respiratory rate Systolic blood pressure Diastolic blood pressure Provider Name and Address Organization Details Last Updated DateTime 8 187.96 cm 33.9 kg/m2 345873. 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 [...] Recorded Time Tdap 3 completed Not Available [facility] 11/04/2019 02:09:18 Influenza, split virus, quadrivalent, PF 3 completed Not Available [facility] 11/04/2019 02:11:34 Influenza, split virus, trivalent, preservative 1 completed Lina Rojas [facility], [place] 09/30/2011 13:49:53 zoster live 4 completed Not Available [facility] 11/04/2019 02:08:02 Influenza, split virus, quadrivalent, PF 4 completed Not Available [facility] 11/04/2019 02:11:51 pneumococcal polysaccharide PPV23 4 completed Not Available [facility] 11/04/2019 02:06:28 Influenza, high-dose, trivalent, PF 6 completed Not Available [facility] 11/04/2019 02:12:24 Influenza, high-dose, trivalent, PF 7 completed Not Available [facility] 11/04/2019 02:14:01 Influenza, high-dose, trivalent, PF 8 completed Not Available [facility] 11/04/2019 02:15:35 Novel [id number] 01/07/201 0 completed Not Available [facility] 11/04/2019 02:09:57 Past Encounters Encounter ID Performer Location Encounter Start Date Encounter Closed Date Diagnosis/Indication Diagnosis SNOMED-CT Code Diagnosis ICD10 Code Diagnosis Note [id number] RANDELL Gunderson [address] [place] [address] 03/11/2006 09:23:52 12/31/2007 03:19:17 [id number] MD Chepe Bledsoewick [address] [place] [address],[address] [place] [address] 12/27/2003 08:42:42 12/31/2007 03:22:57 [id number] MD Florencia Bledsoe [address] [place] [address],[address] [place] [address] 09/05/2004 00:00:00 12/31/2007 03:22:57 [id number] MD [place] Bledsoe [address] [place] [address],[address] [place] [address] 05/13/2006 14:47:39 12/31/2007 03:22:57 [id number] MD Chepe Bledsoewick [address] [place] [address],[address] [place] [address] 02/12/2006 09:19:26 12/31/2007 03:22:57 [id number] MD Chepe Bledsoewick [address] [place] [address],[address] [place] [address] 09/30/2006 14:15:17 12/31/2007 03:22:57 [id number] MD Chepe Bledsoewick [address] [place] [address],[address] [place] [address] 01/20/2007 15:01:30 12/31/2007 03:22:57 [id number] MD [place] Bledsoe [address] [place] [address],[address] [place] [address] 11/29/2003 10:35:56 12/31/2007 03:22:57 [id number] MD [place] Bledsoe [address] [place] [address],[address] [place] [address] 06/05/2004 09:00:45 06/12/2004 21:35:10 [id number] Morgan Barton MD [place] [address] [facility],[address] [place] [address] 07/06/2007 10:20:16 12/31/2007 03:22:57 [id number] Morgan Barton MD [place] [address] [facility],[address] [place] [address] 11/24/2007 10:49:59 12/31/2007 03:22:57 [id number] Morgan Barton MD [place] [address] [facility],[address] [place] [address] 06/13/2008 11:14:34 06/13/2008 12:40:47 [id number] Morgan Barton MD [place] [address] [facility],[address] [place] [address] 10/25/2008 09:15:44 10/25/2008 10:13:18 [id number] RANDELL Quinones [place] [address] [facility],[address] [place] [address] 12/25/2008 11:08:30 12/25/2008 11:46:04 [id number] Morgan Barton MD [place] [address] [facility],[address] [place] [address] 04/11/2009 09:49:20 04/15/2009 09:03:43 [id number] RANDELL Gunderson [place] [address] [facility],[address] [place] [address] 05/20/2009 13:35:44 05/20/2009 16:40:04 [id number] Morgan Barton MD [place] [address] [facility],[address] [place] [address] 10/24/2009 09:17:27 10/24/2009 12:11:25 [id number] Morgan Barton MD [place] [address] [facility],[address] [place] [address] 04/10/2010 08:57:45 04/10/2010 09:46:48 [id number] RANDELL Quinones [address] [place] [address] 05/26/2010 09:52:35 05/26/2010 11:22:16 [id number] Morgan Barton MD [address] [place] [address] 09/19/2010 09:52:05 09/19/2010 10:40:00 [id number] Morgan Barton MD [address] [place] [address] 05/21/2011 10:19:07 05/21/2011 11:07:33 [id number] Morgan Barton MD [address] [place] [address] 09/30/2011 13:23:33 09/30/2011 14:39:44 [id number] RANDELL Gunderson [address] [place] [address] 11/02/2011 08:47:23 11/02/2011 11:11:28 [id number] Morgan Barton MD [address] [place] [address] 09/29/2012 10:45:31 09/29/2012 12:29:17 [id number] Morgan Barton MD [address] [place] [address] 01/26/2013 10:09:07 01/26/2013 13:47:45 [id number] Morgan Barton MD [address] [place] [address] 10/05/2013 08:47:34 10/05/2013 09:43:26 Adult health examination [id number] He reports doing well and has been working very hard. He is considerin g retiring in the next year or two. I urged him to try to work in more activity and to work on weight loss with diet and exercise. External hemorrhoids [id number] He had seen Dr. Garrett and did not want surgery or banding. I advised him to consider some treatment. I stressed the need to control any constipati on if he has some. To call with problems. Gout 40253618 He denie s having had a gout episode in a long time and he has cut back on his alcohol intake. He was using Advil prn with good effect when he had a flare. To call with any issues. Gastroesop hageal reflux disease 540329265 He says that he uses the omeprazole sporadical ly depending on what he is eating. To call with problems. Asthma 308114754 He says that he has been doing well without recent need for or use of the albuterol. To call with any issues. Overweight 527392863 We talked about trying to lose weight with diet and regular activity. Impacted cerumen 11590123 I made the same recommenda tion for Debrox and irrigation afterward. To call if not fully effective. Influenza vaccine needed [id number] 106 Vitamin D deficiency 07869737 See form. [id number] Morgan Barton MD [address],[facility] e [address] [place] [address] 03/15/2014 10:21:08 03/15/2014 11:26:27 External hemorrhoids 49113126 He says that he still gets symptoms about once monthly. He had seen Dr. Garrett and decided against having surgery or banding due to possible pain and time out of work. He will call if he changes his mind. Gastroesop hageal reflux disease 331038072 He says that he uses the omeprazole which works well for him. Asthma 260551007 He says that he has not needed to use the albuterol in a long time. To call with any problems. Overweight 225977004 He has been active at work and we talked about continuing to work on weight loss. To try to increase his regular activity as tolerated. Vitamin D deficiency 37741349 He had taken the high dose vit [...] units daily. Administra tion of viral vaccine 57666355 We discussed the varicella vaccine and I answered his questions. He does want to receive the shingles vaccine. Impaired f asting glycemia 113566680 His fasting glucose is slightly elevated at 103 and we discussed the importance of staying active. He says he plans to do more activity. We also talked about losing more weight and he is still working on this. He will recheck a glucose and check a HbA1c in the fall. Ophthalmic examination and evaluation 04353569 To go for a regular eye exam. Mixed hyperlipidemia 037893951 I gave and we discused the cholestero [...] recommenda tions. His triglyderi joanne are fine. [id number] RANDELL Gunderson [address] [place] [address] 06/25/2014 13:45:36 06/25/2014 15:27:12 Left flank pain 013388348 ? Renal stone she will increase fluids get labs and the Renal CT to R/O a stone and if sx increase he will call or go to the ER Blood in urine 65703213 [id number] Morgan Barton MD [address] [place] [address] 10/05/2014 09:19:46 10/05/2014 10:28:07 Adult health examination 577808447 He says that he is doing well but is very busy at work and is excited at the prospect of retiring after 40 years some time in 2015. He is active at work but does not do other formal exercise. I urged him to try to lose weight. External hemorrhoids 93426936 He has hemorrhoid s and still is constipate d. I urged him to treat this aggressive ly or the hemorrhoid s will likely return or worsen. He has seen Dr. Garrett in the past and did not want surgery or banding. He is still considerin g this for the future. To call with any issues. Gout 06417852 He has been doing well with his gout and has almost no alcohol. He has used Advil with effect when he has a flare. To call with problems. Gastroesop hageal reflux disease 556550121 He uses omeprazole when he is going to have spicy foods and it works well for him. Asthma 773325913 He has a history of asthma and has been doing well. He has albuterol to use prn. Overweight 423156186 I u rged him to work on weight loss with diet and regular exercise. Impacted cerumen 37418735 I again discussed the use of Debrox and repeated irrigation afterward and to do these for a few days. He should call if not fully effective. Influenza vaccine needed [id number] 106 Vitamin D deficiency 43502490 His vitamin D is low at 23.9. I advised him to take vit D 2,000 units and he has been and it has been climbing. We will cont to follow it. Abdominal pain 98574888 He has left lower abd pain which [...] these today and he declines. Kidney stone 82749218 He has had the left kidney stone removed by laser by Dr. Raines and he had had a stent placed, since removed. He says he will be going for removal of the stone on the right side. Impaired f asting glycemia 527567626 His fasting glucose is normal at 97 and his A1c is excellent at 5.3%. I encouraged him to stay active and to work on weight loss. Administra tion of pneumococcal vaccine 06911101 Screening for malignant neoplasm of colon 715816617 He is due for a repeat colonoscop y in January with Dr. Garrett. [id number] Morgan Barton MD [address],[facility] e [address] [place] [address] 02/08/2015 08:51:55 02/08/2015 10:27:22 External hemorrhoids 86238869 He has hemorrhoid s which are uncomforta [...] him. To call with any problems. Overweight 201182212 He has been working a lot and has not had a lot of time to exercise, he says. I encouraged him to try to make time if possible. He is active at work, he says. To try to cut back on his consumptio n of candy bars, which he has regularly at work, he says. Kidney stone 68339542 He follows with Dr. Raines and denies current problems. He says that he drinks plenty of fluids. He has had the left kidney stone removed by laser by Dr. Raines and he had undergone stent placement. Abdominal pain 20515827 He says that he still has the [...] or worse symptoms. Impaired f asting glycemia 840708929 His fasting glucose is lower at 96 and his A1c is stable and good at 5.3%. We talked about the criteria for diabetes and the importance of weight loss and regular activity. Constipation 90975190 He has intermitte nt constipati on and [...] if he has any problems or questions. [id number] Morgan Barton MD [address],[facility] e [address] [place] [address] 06/28/2015 08:57:17 06/28/2015 09:35:38 External hemorrhoids 25421382 He saw Dr. Garrett and will be going for banding of his hemorrhoid s. He is planning on doing this after he retires at the end of July. Kidney stone 10691263 He underwent ESWL for the right sided kidney stone. He had had the left kidney stone removed by laser by Dr. Raines previously with stent placement and then removal. He did not notice any fragments in his urine. Abdominal pain 93024171 He has left sided abd pain which [...] does not improve. Pain of hip region 01672575 He has left hip pain and this originally was thought to related to his urologic issues with kidney stones. However, it has not seemed to vary with his urologic symptoms. He has mild pain with external rotation of the left hip. He will obtain x-rays and then see orthopedic s for evaluation . To bring the films with him. Neck pain 28495862 He re ports about a month of [...] symptoms or if he is not improving. [id number] Barton MD [address] [place] [address] 10/17/2015 09:17:39 10/17/2015 10:14:32 External hemorrhoids 30352699 K64.4 He has hemorrhoid s and says that the constipati on is doing better. He plans to return to see Dr. Garrett after the winter. Gout 42031586 M10.9 He says that he has been doing well with any recent episodes of gout and he drinks almost no alcohol. He has used Advil with effect when he has a flare. To call with problems. Gastroesop hageal reflux disease 192178309 K21.9 He uses omeprazole intermitte ntly and we talked about GERD. He says that certain foods can trigger it. He should call with any issues. Asthma 494059331 J45.20 He has a history of asthma and has been doing well without recent problems. I refilled the albuterol. Overweight 345205603 E66 .3 Z68.32 His weight is up 7 lbs in the past year and he attributes this to overeating , neo during the holidays. He plans to get the weight down with diet and exercise beginning in October. Kidney stone 12506644 N2 0.0 He has had the left kidney stone removed by laser by Dr. Raines and he had had a stent placed, since removed. He denies any problems and says that he drinks plenty of water. Abdominal pain 14975021 R10.32 His left lower abdominal discomfort improves when he is active and when he exercises, further compelling me to believe that it is musculoske letal. I advised him to call with any new or worse symptoms. Impaired f asting glycemia 998132257 R73.01 His fasting glucose had normalized and we talked about the importance of regular activity and weight loss. He will check labs in a few months. Impacted cerumen 1781669 6 H61.23 I again discussed the use of Debrox and repeated irrigation afterward and to do these for a few days. He should call for an appt if these are not fully effective. Screening for malignant neoplasm of colon 417779952 Z12.11 He is due for a repeat colonoscop y in January with Dr. Klipfel and I will refer him. Cholesterol screening 27 3434871 Z13.583 [id number] Morgan Barton MD [place] [address] [facility],[address] [place] [address] 03/09/2016 09:52:03 03/09/2016 11:15:50 Gout 38248262 M10.9 He says that he has had [...] asked him to call with problems. Overweight 533157888 E66 .3 Z68.33 His weight is up 7 lbs this calendar year and 16 lbs since 06-28-15. He says that he has been overeating and not eating healthily and he has gained weight. We talked about reversing this trend with diet and regular activity as tolerated and allowed. Impaired f asting glycemia 651809736 R73.01 His fasting glucose is high normal at 98 and his A1c continues to trend downward with his last value of 5.2%. I would expect this to increase slightly with his recent weight gain. I encouraged him to lose weight and to try to do regular exercise as tolerated and allowed. Hyperlipidemia 98902958 E78.5 I gave and we discussed the [...] the fall. Closed fra cture of hip 581126736 S72.002D He is s/p left hip fracture after falling on ice while skiing in [place] and falling. He had surgery by Dr. Rodriguez at [address] 11-07-15 and he is doing well. He still has some mild achiness and stiffness when he first gets up from sitting but he says that this improves after he gets going. Ankle edema 32190815 R60 .0 He has been getting bilateral [...] or persistent symptoms, he is to call. [id number] Morgan Barton MD [address] [place] [address] 09/04/2016 10:27:54 09/04/2016 11:43:17 Gout 42104151 M10.9 ANNUAL EXAM He says that he has had some flares and had a recent one in his wrist. We talked about this but did not get to the point of discussing treatment given his recurrent episodes. To stay well hydrated and I game him a handout for a low purine diet. He should call with any problems. Overweight 921112047 E66 .3 Z68.33 I urged him to work on weight loss and he says he plans to lose weight once skiing season begins. He has gained it since the left hip injury. Hyperlipidemia 94379474 E78.5 I gave and we discussed the [...] the issue. Closed fra cture of hip 784445879 S72.002D He is s/p left hip fracture after falling on ice while skiing in [place]. He is doing well and the pain is improved. It can ache if he sits for a long time but he has no pain with walking. He is following with his surgeon, Dr. Rodriguez, at [facility]. Ankle edema 53759372 R60 .0 He continues to get bilateral [...] with any problems. Impaired f asting glycemia 278049061 R73.01 His fasting glucose is mildly elevated at 102 and his A1c is discordant at 5.1%. I reviewed the criteria for DM. I urged him to lose weight and to be active, which he plans. Active or passive immunization 843702812 Z23 Asthma 453317228 J45.20 He has a history of asthma and has been doing well without any problems. It can flare when he is exposed to cats. He has albuterol to use prn. Allergy 801033156 Z91.09 He says that he does well unless he is exposed to cats or dust. I suggested using Claritin or an equivalent but he says the allergic symptoms occur so quickly he doesn't think t's practical. It can trigger bronchospa sm which responds to albuterol, he says. He should call with any problems. External hemorrhoids 239 23357 K64.4 He has hemorrhoid s and says that the constipati on is doing better. He plans to call Dr. Garrett to schedule banding. Impacted cerumen 1327592 6 H61.23 He has used Debrox and still has cerumen on the left. He will try again and then will call for an appt if he is not successful . Kidney stone 80520532 N2 0.0 He is s/p left kidney stone removal by Dr. Raines and he is doing well s/p a Resume procedure. He tries to stay well hydrated. On no special stone diet. Lower urin lizzy tract symptoms due to benign prostatic hypertrophy 6584242920 9101 N40.1 He had intermitte nt trouble voiding with slow stream and hesitancy. Now, after the Resume procedure with Dr. Raines, he is doing well and his symptoms are improved. [id number] Morgan Barton MD [place] [address] [facility],[address] [place] [address] 03/04/2017 08:09:20 03/04/2017 09:00:29 Gout 00101852 M10.9 He reports that his gout has been doing well and he says that he has stopped drinking all alcohol and feels that this has helped.He knows to stay well hydrated. Hyperlipidemia 51543700 E78.5 I gave and we discussed the [...] like to. Closed fra cture of hip 853168800 S72.002D He is s/p left hip fracture after falling on ice while skiing in [place]. He says that he is doing well and is walking. Running caused some pain so he stopped this and I think it is burgos.He had followed with his surgeon, Dr. Rodriguez, at [facility]. Impaired f asting glycemia 752590411 R73.01 His fasting glucose is normal with his value at 87 and his recent A1c up to 5.4%. He is active and plans to increase his exercise, which I commended. I also urged him to work on wt loss. External hemorrhoids 239 [address]4340 K64.4 He has hemorrhoid s and had the worst one banded by Dr. Garrett. He is doing well with this and is on a regular regimen of MiraLax for constipati on control. Gastroesop hageal reflux disease without esophagitis 136286228 K21.9 He does well with his reflux since he stopped drinking and have acidic foods and since he retired. 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 He will try to see how he does weaning down the medication . He does not take it daily at present, he says. Obese 535794812 E66.9 Z68.33 We talked about wt loss and I encouraged him to work on this. He says he is hoping to get down to 23-235 lbs. [id number] Morgan Barton MD [address] [place] [address] 09/02/2017 10:44:31 09/02/2017 12:10:56 Gout 10883221 M10.9 ANNUAL EXAM He says that he has been doing well without a recent flare. He had felt one coming on this summer but he took some ibuprofen and aborted it. To call with problems.H e drinks plenty of fluids. He will check a uric acid level. Overweight 885007280 E66 .3 Z68.33 We talked about the need to lose weight with primarily diet and also regular activity as tolerated. Hyperlipidemia 74643619 E78.5 His ASCVD risks score has been [...] age-weight ed. Closed fra cture of hip 959422714 S72.002D He is s/p left hip fracture last year after falling on ice while skiing in [place]. He is much improved and he skied for the first time this season recently. He still gets some pain if he sits for too long and walking helps it. He occas using ibuprofen. He was seeing Dr. Rodriguez, ortho, at [facility]. He had done the surgery. He was d/c'ed from f/u with Dr. Rodriguez. Ankle edema 91557823 R60 .0 He continues to get bilateral ankle edema but says that it has not been bad. I reviewed the importance of limiting sodium intake and we talked about compressio n stockings again. He again declines. I asked him to call with or worse symptoms. Impaired f asting glycemia 594108627 R73.01 His fasting glucose has been mildly elevated in the past and I again urged him to try to lose weight and to stay active. He will recheck labwork. Asthma 729108202 J45.20 He has a history of asthma and has been doing well without any recent symptoms. He says he has not needed the albuterol for a few years. I offered to refill the albuterol but he declines at present and says he will call if the symptoms flare. Allergy 626098038 Z91.09 He says that he does well unless he is exposed to cats or dust. I again suggested using Claritin or Zyrtec but he says he does not think he would need it. To call with any problems. He has albuterol to use prn and I asked him to call with any problems. External hemorrhoids 239 11604 K64.4 He has hemorrhoid s and has been doing well in general after Madeleine Garrett banded the large ones. He has been having very mild BRB recently from a small hemorrhoid . He says that if gets worse or is a problem, he will call Dr. Garrett for treatment as recommende brandon. Impacted cerumen 0483057 6 H61.23 He has bilateral cerumen impaction and he has used Debrox in the past. I reviewed with him how to use but to do the irrigation at least 20-30 times. If he does not have success, to call here for a next day appt for irrigation . Lower urin lizzy tract symptoms due to benign prostatic hypertrophy 0940915066 9101 N40.1 Since the Resume procedure with Dr. Raines, he has been doing better. He says that he has intermitte nt nocturia ranging from 0-2 times night. Kidney stone 01261933 N2 0.0 He is s/p left kidney stone removal by Dr. Raines and he is doing well s/p a Resume procedure. He drinks plenty of fluids. He is not on a special stone diet. Active or passive immunization 020356159 Z23 Gastroesop hageal reflux disease 410056542 K21.9 He uses omeprazole and we talked [...] avoiding caffeine, etc. To call with problems. [id number] Morgan Barton MD [place] [address] [facility],[address] [place] [address] 02/07/2018 10:09:20 02/07/2018 11:15:38 Gout 46825372 M10.9 He denies any recent gout flares and says that he drinks plenty of fluids - for this and his hx of a renal stone. He has used ibuprofen for flares. We reviewed his uric acid level which was 7.0. Overweight 736376309 E66 .3 Z68.34 His weight is up 7 lbs from his last visit, 8 lbs in the past year. He is aware and we talked about the importance of diet as the primary pack train driver of weight gain/loss although exercise helps too. He admits to having chocolate cake with some regularity and also not being as active as he used to be when he worked. In addition, he tends to snack more since he is at home and no longer skips any meals. Hyperlipidemia 99427827 E78.5 I gave and we discussed the [...] normal at 137. Impaired f asting glycemia 772963885 R73.01 His fasting glucose is up to [...] to his next appt. Paresthesia of foot 7223 66443 R20.2 He reports having bilateral toe paresthesi [...] call with any new or worse symptoms. [id number] Silver Shen MD [address] [place] [address] 09/05/2018 10:41:23 09/05/2018 11:45:16 Adult health examination 560778296 Z00.01 Reviewed risk factors and treatment options Establishe d an electronic screening schedule which was provided for the patient Reviewed lifestyle and provided health advice and discussed possible interventi ons Reviewed care team Paresthesia of foot 3090 69637 R20.2 cont f/u with neuro Gastroesop hageal reflux disease 890539647 K21.9 reviewed his sxrec'd slow wean if possible as it sounds like he hasn't done this in the past Closed fra cture of hip 166642698 S72.001D cont f/u with ortho Kidney stone 33669658 N2 0.0 he had seen uro in the past but Dr Raines might not be making more aptswee discussed ordering an US, but he was in favor of getting a new urologist in [place] Body mass index 30+ - obesity 853753544 Z68.33 Long-term drug therapy 038538523 Z79.899 given the length of time that he has been on the PPI will check the below labs. Asthma 188487407 J45.90 9 rare if ever use of albuterol, but will refill External hemorrhoids 239 65031 K64.4 rec'd better control of constipati on Constipation 31583147 K5 9.00 as aboverevie wed his diet which could be a lot better Lower urin lizzy tract symptoms due to benign prostatic hypertrophy [id number] 9101 N40.1 d/w him doing an exam and he thinks he will get a urologist, likely in [facility] previous PSAs, then have been stable b/n 3.7-3.9 since 2014, but before that there was a jumpwill recheck Impaired f asting glycemia 248717415 R73.01 last numbers were goodrec'd a better diet Gout 41080856 M10.9 no issues since he stopped drinking Preventive procedure 169 135703 Z29.9 We reviewed the ARRIVE trial and/or the ASCEND trial. (ARRIVE: Lancet Jun 12. About 09042 non diabetic patients were randomized to 100 mg of aspirin or placebo daily. Enrolled were men 55 or older and had 2 or more CV risk facotrs and women 60 or older with 3 or more CV risk factors. During average f/u of 5 years, there was no CV benefit, about 4% MN or stroke in both groups, and GI bleed was slightly but statistica lly significan tly more common with aspirin (1% vs 0.5%, P= 0.0007). ASCEND: [facility] Jun 12. About 18574 diabetic patients were randomized to aspirin or [...] one major bleed was caused. ) ASPREE: [facility] Jul 18. About 29347 people, median age 74, randomized to placebo [...] (3.8% vs 2.8%). Active or passive immunization 124987386 Z23 Hyperlipid emia screening 274232517 Z13.220 Screening for disorder 124028230 Z13.9 Elevated blood-pressure reading without diagnosis of hypertension 550001600 R03.0 reviewed his BP today which has [...] 09/04/2016 1 MEDICARE B-RI: MEDICARE SERVICES - [facility] Bert Prieto Winnie [id number] Bert Zhou 09/04/2016 2 [facility] - PLAN F (MEDICARE SUPPLEMENT) Bert Ida Zhou [id number] Bert Zhou 03/04/2017 1 MEDICARE B-RI: MEDICARE SERVICES - [facility] Bert Prieto Winnie [id number] Bert Zhou 03/04/2017 2 [facility] - PLAN F (MEDICARE SUPPLEMENT) Bert Zhou [id number] Bert Zhou 09/02/2017 1 MEDICARE B-RI: MEDICARE SERVICES - [facility] Bert Prieto Winnie [id number] Bert Zhou 09/02/2017 2 [facility] - PLAN F (MEDICARE SUPPLEMENT) Bert Zhou [id number] Bert Zhou 02/07/2018 1 MEDICARE B-RI: MEDICARE SERVICES - [facility] Bert Prieto Winnie [id number] Bert Zhou 02/07/2018 2 [facility] - PLAN F (MEDICARE SUPPLEMENT) Bert Prieto Winnie [id number] Bert Zhou 09/05/2018 2 [facility] - PLAN F (MEDICARE SUPPLEMENT) Bert Ida Zhou [id number] Bert Zhou 09/05/2018 1 MEDICARE B-RI: MEDICARE SERVICES - [facility] Bert Zhou [id number] Bert Zhou Notes Date Note Type Note [...] be playing tennis soon.He goes up to [place], [place] to visit his father.He saw Dr. Garrett and had the worst hemorrhoid banded. He is using MiraLax every other day with good effect.He is hoping to get down to 230 - 235 lbs. Morgan ching [place] 03/04/2017 09:17:48 02/07/2018 text/html He says that [...] prior to retiring. Morgan ching [place] 02/08/2018 12:44:07 09/05/2018 text/html Medicare Annual Wellness [...] stoolheart burn is controlled Silver Shen MD [address] [place] [address] [facility] [place], [address], [place] 09/05/2018 11:35:49
--- OUTSIDE RECORDS SUMMARY | 2025-02-19 14:41 | XMS_ITS | Patient Health Record ---
Author Organization [facility] Address [address] [place] [address] Care Team Providers Care Director Of Financial Aid Name Role Phone Harvey Ramos MD Primary Care Provider Francesco Woodall Unavailable [phone] Allergies No Known Allergies Results Component Value Reference Range Notes Pathology (Not yet reviewed by provider) Interpretation: Performing Lab:[facility], [address] [place] [address] Notes/Report: Name: Martha Zhou Age/Sex: 74/M : 1950 Unit#: [id number] Attend Dr: Francesco Caceres MD Re02/16/25 Status : [facility] Location: [facility] Disch: SPEC : [id number] RECD : 02/16/25-1245 STATUS: MONTSE MUNOZ NUM: [id number] KRISHAN: 02/16/25-[address] [facility] [address]: Francesco Caceres MD ENTERED: 02/16/2512 54 SP TYPE: Surgical OTHR DR: Harjinder Rosa MD ORDERED: HE Stain/6, Gross Micro L4/2 Diagnosis A. Colon, ascending, polypectomy: Fragments of tubular adenoma; negative for high-grade dysplasia or carcinoma. B. Colon, 50 cm, teofilo ypectomy: Fragments of tubular adenoma; negative for high-grade dysplasia or carcinoma. Clinical History Pre-Op Dx: Screening Post-Op Dx: Colon po lyps, diverticulosis, hemorrhoids Microscopic Description A, B. Microscopic se ctions reviewed. Material Received A. Ascending colon polyp B. Polyp at 50cm Gross Description Received in 2 parts. A. Received in forma danika labeled ?ascending colon polyp? are 4 fragments of pink-cho soft tissue, each measuri ng 0.2 cm in greatest dimension which are wrapped in lens paper and entirely submitted f or microscopic examination, 4 pieces in cassette A. B. Received in forma danika labeled ?polyp at 50 cm? are 2 fragments of red-pink soft tissue measuring 0.2 and 0. 5 cm in greatest dimension which are wrapped in lens paper and entirely submitted for micros copic examination, 2 pieces in cassette B. ([facility]) Copies To: Harjinder Rosa MD [facility] Primary Care,[address] [place] [address] [email or web address] CONTINUED ON NEXT PAGE Name: Martha Zhou Age/Sex: 74/M : 1950 Unit#: [id number] Attend Dr: Francesco Caceres MD Re02/16/25 Status : [facility] Location: [facility] Disch: SPEC : [id number] RECD : 02/16/25-1245 STATUS: MONTSE RECelso NUM: [id number] KRISHAN: 02/16/25-[address] [facility] [address]: Francesco Caceres MD ENTERED: 02/16/25-12 54 SP TYPE: Surgical OTHR DR: Harjinder Rosa MD ORDERED: SUSAN Stain/6, Guerita Zelaya L4/2 Copies To: (Continued) Francesco Caceres MD [address] [place] [address] Signed (si gnature on file) Tho Grijalva MD 02/19/25 1427 END OF REPORT Reason For Referral No Information Medications Medication SIG (Take, Route, Frequency, Duration) Notes [...] a day for 30 day(s) otc/prn Active Social History Tobacco Use: Social History Observation Description Date Details (start date - stop date) Never Smoker NA - NA Tobacco Use/Smoking Question Answer Notes Patient is a nonsmoker Alcohol Screen Question Answer Notes Did you have a drink containing alcohol in the p ast year? No Points 0 Interpretation Negative Section Notes: No alcohol Problems Problem Type SNOMED Code ICD Code Onset Dates Problem Status W/U Status Risk Notes Problem Screening for malignant neoplasm of colon (137444896) Encounter for screening for malignant neoplasm of colon (Z12.11) Active confirmed Problem Pre-procedure evaluation check (128572552) Encounter for other preprocedural examination (Z01.818) Active confirmed Vital Signs Blood pressure diastolic 00 mm Hg 07/28/2024 Height 6 ft 4 in in 07/28/2024 Blood pressure systolic 00 mm Hg 07/28/2024 Weight 252 lbs 07/28/2024 BMI 30.67 kg/m2 07/28/2024 Encounters Encounter Location Date Provider Diagnosis [facility] Outpatient [address] [place] [phone] 02/16/2025 Frnacesco Caceres [facility] [address] [place] [address] 07/28/2024 Francesco Caceres Encounter for screening for malignant neoplasm of colon Z12.11 and Encounter for other preprocedural examination Z01.818 [facility] [address] [place] [address] 11/03/2024 Francesco Caceres Assessments Encounter Date Diagnosis (ICD Code) Assessment Notes Treatment Notes Treatment Clinical Notes Section Notes 07/28/2024 Encounter for screening for malignant neoplasm of colon (ICD-10 - Z12.11) Overall, Bill appears quite well. I did recommend a followup colonoscopy for screening purposes given his age, good clinical appearance, and last exam being over 10 years ago. We did review the rationale for that in regard to colon cancer prevention. Full consent was obtained for this, including risks of bleeding and perforation. The procedure will be done with monitored anesthesia care. Venkatesh was comfortable with this plan. Thank you again for allowing me to participate in Venkatesh's care. I shall continue to keep you advised of his progress. 07/28/2024 Encounter for other preprocedural examination (ICD-10 - Z01.818) Overall, Venkatesh appears quite well. I did recommend a followup colonoscopy for screening purposes given his age, good clinical appearance, and last exam being over 10 years ago. We did review the rationale for that in regard to colon cancer prevention. Full consent was obtained for this, including risks of bleeding and perforation. The procedure will be done with monitored anesthesia care. Venkatesh was comfortable with this plan. Thank you again for allowing me to participate in Venkatesh's care. I shall continue to keep you advised of his progress. Plan Of Treatment Pending Test Test Name Order Date Pathology 02/16/2025 Future Test Test Name Order Date COLONOSCOPY 07/28/2024 Insurance Providers Payer Name Payer Address Payer Phone Subscriber Number Group Number Insured Name Patient Relationship to Insured Coverage Start Date Coverage End Date MEDICARE OF [place] [address] [place] [phone] [id number] MARTHA ZHOU Self - patient is the insured [facility] SUPPLEMENTAL PLAN [address] [place] [address] [phone] [id number] MARTHA ZHOU Self - patient is the insured Medical (General) History Medical History History ICD Code Kidney stones Denies [place],DM,CVA,Lung disease,renal dise ase Acne rosacea 2 or 3 negative colonoscopies while [place] in [place]---last one before 2009 Told of Gallstones in the past-asymptoma tic Elevated PSA with urinary frequency--I t old him to see a Urologist Surgical History Surgery Date(Month/Year) Left hip replacement 2022, left hip frac ture before that Hemorrhoid banding
--- OUTSIDE RECORDS SUMMARY | 2025-02-19 14:41 | XMS_ITS ---
Author Organization [facility] Address [address] [place] [address] Care Team Providers Care Breakfast And Room Attendant Name Role Phone Richard MULLINS, Harvey Primary Care Provider Francesco Woodall Unavailable [phone] REASON FOR VISIT screening Encounters Encounter Location Date Provider Diagnosis [facility] Out[place] [address], [place] [id number] 02/16/2025 Francesco Caceres Plan Of Treatment No Information Progress Notes * MARTHA PALAFOXDOB:1950 (74 yo M)Acc No.[id number]:02/16/2025 COLON WITH MAC Patient:?MARTHA PALAFOX Provider:?Francesco Caceres MD :1950???Age:74 Y???Sex:Male Forrest e:02/16/2025 Address:[address] [place] [address] , [facility] Pcp:Harvey Ramos MD Subjective: * Chief Complaints: * ???1. Screening. * Medical History:? Objective: * Vitals:? Assessment: Plan: * Treatment: * * The named appointment provid er may or may not be the originator of this progress note, and it is not deemed complete until electronically signed by the appointment provider. Sign off status: Pending * Provider:?Francesco Caceres MD Date:? 025 Generated for Duane sarmiento/Jossie/eTransmitting on:?02/19/2025 02:40 PM EDT
--- OUTSIDE RECORDS SUMMARY | 2025-02-19 14:41 | XMS_ITS ---
Author Organization [facility] Address [address] [place] [address] Care Team Providers Care Technologist Development Name Role Phone Richard MULLINS, Harvey Primary Care Provider Francesco Woodall Unavailable [phone] REASON FOR VISIT screening Encounters Encounter Location Date Provider Diagnosis [facility] Outpatient [address] [place], [place] [phone] 11/13/2024 Francesco Caceres Plan Of Treatment No Information Progress Notes * MARTHA PALAFOXDOB:1950 (74 yo M)Acc No.[id number]:11/13/2024 COLON WITH MAC Patient:?MARTHA PALAFOX Provider:?Francesco Caceres MD :1950???Age:74 Y???Sex:Male Forrest e:11/13/2024 Address:[address] [place] [address] , [facility] Pcp:Harvey Ramos MD Subjective: * Chief Complaints: [...]
== END 2025-02-19 14:27 | disposition home or self-care (01) ==
LOC: HO.HMCHD 13:16
PROVIDERS: PCP Internal Medicine; Visit Provider Internal Medicine
DX: I10 Essential (primary) hypertension (principal); N52.9 Male erectile dysfunction, unspecified; N40.0 Benign prostatic hyperplasia without lower urinary tract symptoms; Z00.00 Encounter for general adult medical examination without abnormal findings

== ENCOUNTER → 2025-02-19 13:16 | Outpatient (BNVA) | payer MEDICARE, SELFPAY | PROVIDERS: PCP Internal Medicine; Visit Provider Internal Medicine | DX: I10 Essential (primary) hypertension (principal); N52.9 Male erectile dysfunction, unspecified; N40.0 Benign prostatic hyperplasia without lower urinary tract symptoms | CPT/HCPCS: 99202 ==

== ENCOUNTER 2025-03-26 10:21 | Outpatient (AMB) | payer MEDICARE, SELFPAY ==
[2025-03-26 10:13] VITALS: BP 122/70; PULSE 74; TEMP 36.6; O2SAT 99; BMI 30.8
--- NOTE | 2025-03-26 10:13 | A.OFFPC_ITS ---
Vital Signs 03/26/25 10:13 Height 6 ft 4 in Weight 253 lb BMI 30.8 BP 122/70 Blood Pressure Location Lt brachial Position Sitting Pulse 74 Pulse Source Pulse Oximeter Temp 97.9 F Temp Source Axillary Pulse Oximetry (%) 99 Oxygen Delivery Method Room Air Intake Visit Reasons: Routine Story Reader Required: No Accompanied by: Self / Same As Patient Allergies No Known Allergies Allergy (Verified 03/26/25 10:14) Tobacco use date assessed: 03/26/25 Fall risk assessment: No Falls in past year Last assessed Fall Risk: 03/26/25 Dental Screening Dental Screen Date: 03/26/25 Did you have a dental visit in the last 12 months?: Yes Did you have a dental problem in the last 6 months where you did not have access to dental care?: No PFSH Medical History Erectile dysfunction Essential hypertension Gallstones Elevated PSA Environmental allergies Arthritis Asthma Hemorrhoids Neuropathy BPH (benign prostatic hyperplasia) GERD (gastroesophageal reflux disease) Venous stasis Renal calculi Chronic renal insufficiency Rosacea Surgical History Hx of hemorrhoidectomy History of hip surgery H/O colonoscopy (02/16/25) History of total left hip arthroplasty Hx of tonsillectomy Family History Mother Alzheimer disease Father Heart disease Diabetes Afib CHF (congestive heart failure) Social History Housing: House Are you a primary home care liaison to a significant other at home: No Do you presently have visiting nurse or other home services: No Alcohol intake: never Patient Tobacco Use Status: Never used Tobacco e-Cigarette/Vaping Use: Never Used service: Yes Current occupational status: retired Cognitive needs: No Hearing needs: No Vision needs: Yes (Reading) Questionnaire PHQ-9 Over the last 2 weeks, how often have you been bothered by any of the following problems? 1. Little interest or pleasure in doing things: not at all 2. Feeling down, depressed, or hopeless: not at all 3. Trouble falling or staying asleep, or sleeping too much: not at all 4. Feeling tired or having little energy: not at all 5. Poor appetite or overeating: not at all 6. Feeling bad about yourself - or that you are a failure or have let yourself or your family down: not at all 7. Trouble concentrating on things, such as reading the newspaper or watching television: not at all 8. Moving or speaking so slowly that other people could have noticed. Or the opposite - being so fidgety or restless that you have been moving around a lot more than usual: not at all 9. Thoughts that you would be better off or of hurting yourself in some way: not at all Total score: 0 Source: Developed by Drs. Francesco Gan, Mildred Gates, Yanick Hannon and colleagues, with an educational harpal from [employer]. Thrive Questionnaire Date Thrive assessed: 03/26/25 I am a: Patient Within the past 12 months, did the food you bought not last and you didn't have the money to get more?: Never true Within the past 12 months, did you worry whether your food would run out before you got money to buy more?: Never true Do you have trouble paying for medicines?: No Do you have trouble getting transportation to medical appointments?: No Do you have trouble paying your heating and electricity bill?: No Do you have trouble taking care of your child, family member or friend?: No Do you have trouble with day-to-day activities such as bathing, preparing meals, shopping, managing finances, etc.?: No Are you currently unemployed and looking for a job?: No Are you interested in more education?: No THRIVE Score: 0 AUDIT C Alcohol Use Questionnaire (AUDIT-C) 1. How often do you have a drink containing alcohol?: Never 3. How often do you have six or more drinks on one occasion?: Never Total Score: 0 MADISON-7 AMB Questionnaire MADISON-7 Date MADISON - 7 assessed: 03/26/25 Feeling nervous, anxious, or on edge: 0 = Not at all Not being able to stop or control worryin = Not at all Worrying too much about different things: 0 = Not at all Trouble relaxin = Not at all Being so restless that it is hard to sit still: 0 = Not at all Becoming easily annoyed or irritable: 0 = Not at all Feeling afraid as if something awful might happen: 0 = Not at all Total MADISON-7 score (0-4 normal; 5-9 mild; 10-14 moderate; 15-21 severe): 0 Source: Developed by Drs. Francesco Gan, Mildred Gates, Yanick Hannon and colleagues, with an educational harpal from [employer]. Physical exam (Primary Care) Vital Signs: Last Vital Signs Temp 97.9 F 03/26/25 10:13 Pulse 74 03/26/25 10:13 BP 122/70 03/26/25 10:13 Pulse Ox 99 03/26/25 10:13 Oxygen Delivery Method Room Air 03/26/25 10:13 BMI result Body Mass Index 30.8 Tobacco/Smoking Status: Tobacco use Status Tobacco use date assessed 03/26/25 03/26/25 10:15 Patient Tobacco Use Status Never used Tobacco 03/26/25 10:13 e-Cigarette/Vaping Use Never Used 03/26/25 10:15 PHQ-9: PHQ-9 Score PHQ-9: Total score 0 03/26/25 10:34 Thrive Assessment: Date of Thrive Assessment Date Thrive assessed 03/26/25 03/26/25 10:15 Coding Level of Care Code Est Pt Level 4 (32403) Complex EM visit Add On G2211 Diagnoses Essential hypertension I10 Assessment & Plan Assessment & Plan (1) Essential hypertension: Code(s): I10 - Essential (primary) hypertension Category: Medical Plan: History of Present Illness - The patient is a 74 year old male presenting with management and assessment of chronic conditions. - Essential hypertension managed with lisinopril, with the recommendation to shift dosing to the evening due to reported fatigue. There is no indication of other side effects or complications. - Blood glucose levels previously assessed in October and reported as normal, with ongoing observation due to family history of diabetes. - Chronic venous insufficiency with right leg stasis dermatitis and pigmentation, with reassurance provided due to lack of severe symptoms like ulcers. Family history noted for varicose veins. - Peripheral neuropathy reported, with variable symptom expression affecting activity, though does not significantly limit daily functioning; patient remains active. - Active lifestyle maintained, including walking for extended periods, demonstrating functional capacity despite minor circulation and nerve issues. Social History - The patient maintains an active lifestyle, indicating the ability to walk for one and a half miles regularly. - Reports a focus on avoiding excessive junk food, acknowledging dietary awareness due to family history of diabetes. Review of Systems - Cardiovascular: Reports hypertension. - Neurologic: Reports peripheral neuropathy with variable symptoms. - Dermatologic: Reports chronic venous stasis with stasis dermatitis and pigmentation. - General: Reports fatigue related to medication use. Physical Exam General: Cooperative and healthy appearing Nutritional Appearance: Well nourished Orientation/consciousness: Patient oriented x3 Limitations: No limitations Head: Normal to inspection General: Appearance normal, both eyes and all related structures Neck: Normal visual inspection Chest: Normal palpation of entire chest wall Respiratory: N ormal respiratory effort Neurology: Patient oriented x3, reports neuropathy with variable symptoms. Results - Labs: Blood work done in October, glucose levels appeared normal. Plan 1. Essential Hypertension - Advisement to switch lisinopril administration to evening to mitigate fatigue. 2. Chronic Venous Insufficiency - Monitoring advised; reassured patient regarding lack of severe symptoms and potential for referral if symptoms worsen. 3. Peripheral Neuropathy - No current intervention required due to stable management and maintained activity levels. Discussion Notes During our discussion, I addressed his ongoing management of high blood pressure and suggested moving his lisinopril dose to the evening due to complaints of daytime fatigue. We discussed his chronic venous insufficiency, with focus on the cosmetic and non-threatening nature of his stasis dermatitis, reassured by the absence of ulcers, and I advised that vascular consultation might be consid ered if he notices worsening symptoms. Regarding peripheral neuropathy, we acknowledged his ability to continue with a regular routine, highlighting current management adequacy. I provided reassurance on his past blood glucose results but advised vigilance considering the family history. I encouraged continued activity and dietary mindfulness. Patient Instructions - Take lisinopril in the evening to help with fatigue during the day. - Monitor leg conditions; watch for worsening symptoms like significant swelling or the development of ulcers. - Continue regular physical activity like walking and maintain awareness of dietary choices to help manage health conditions. - Follow up for any concerns or if symptoms change.
--- OUTSIDE RECORDS SUMMARY | 2025-03-26 11:29 | XMS_ITS ---
Author Organization [facility] Address [address] [place] [address] Care Team Providers Care Classroom Teacher Name Role Phone Harvey Ramos MD Primary Care Provider Francesco Woodall [phone] REASON FOR VISIT r/s Encounters Encounter Location Date Provider Diagnosis [facility] [address] [place] [address] 11/03/2024 Francesco Caceres Plan Of Treatment No Information Progress Notes * MARTHA PALAFOXDOB:1950 (74 yo M)Acc No.[id number]:11/03/2024 Patient:?MARTHA PALAFOX :1950???Age:74 Y???Sex:Male Address:[address] [place] [address] , [place], [address] * true * Date:? Generated for Duane sarmiento/Jossie/eTransmitting on:?03/26/2025 11:29 AM EDT
== END 2025-03-26 10:58 | disposition home or self-care (01) ==
LOC: HO.HMCHD 10:21
PROVIDERS: PCP Internal Medicine; Visit Provider Internal Medicine
DX: I10 Essential (primary) hypertension (principal)

== ENCOUNTER → 2025-03-26 10:21 | Outpatient (BNVA) | payer MEDICARE, SELFPAY | PROVIDERS: PCP Internal Medicine; Visit Provider Internal Medicine | DX: I10 Essential (primary) hypertension (principal) | CPT/HCPCS: 99212 ==

== ENCOUNTER 2025-09-24 09:49 | Outpatient (REF) | payer MEDICARE, SELFPAY ==
[2025-09-24 11:19] LABS: Hematocrit 53.1 % (42.0-52.0); Hemoglobin 17.9 g/dl (14.0-18.0); Mean Corpuscular HGB Conc 33.7 g/dl (31.0-36.0); Mean Corpuscular Hemoglobin 29.0 pg (27.0-33.0); Mean Corpuscular Volume 86.1 fL (80.0-98.0); NRBC Abs Auto 0.000 X10*3/uL (0.0-0.012); NRBC Pct Auto 0.0 /100WBC (0.0-0.2); Platelet Count 223 X10*3/uL (160-400); Red Blood Count 6.17 X10*6/uL (4.60-5.80); White Blood Count 6.4 X10*3/uL (4.8-10.8)
[2025-09-24 12:10] LABS: Alanine Aminotransferase 31 U/L (0-40); Albumin Level 4.7 g/dL (3.5-5.0); Alkaline Phosphatase 71 U/L (39-117); Anion Gap 11 (12-20); Aspartate Amino Transferase 34 U/L (5-37); Blood Urea Nitrogen 21 mg/dL (9-16); Calcium 10.0 mg/dL (8.4-10.2); Carbon Dioxide 29 mmol/L (22-29); Chloride 107 mmol/L (96-108); Estimated Glomerular Filt Rate > 60; Potassium 4.5 mmol/L (3.3-5.1); Sodium 142 mmol/L (135-145); Total Protein 7.3 g/dL (6.5-8.0)
[2025-09-27 23:53] LABS: PSA, Ultra Sensitive 5.57 ng/mL
== END 2025-09-24 09:50 | disposition home or self-care (01) ==
LOC: HO.10HDL 09:49
PROVIDERS: Visit Provider Physician Assistant Medical
DX: Z00.00 Encounter for general adult medical examination without abnormal findings (principal); Z12.5 Encounter for screening for malignant neoplasm of prostate; I12.9 Hypertensive chronic kidney disease with stage 1 through stage 4 chronic kidney disease, or unspecified chronic kidney disease; N18.9 Chronic kidney disease, unspecified; R97.20 Elevated prostate specific antigen [PSA]; N40.0 Benign prostatic hyperplasia without lower urinary tract symptoms
CPT/HCPCS: 36415; 80053; 82306; 84153; 84443; 85027